=== PATIENT | male | born 1955 | race Caucasian/White ===

== ENCOUNTER 2017-08-29 18:23 | Inpatient (IN) | payer MEDICAID, MEDICARE ==
[2017-08-29 19:20] LABS: % BASOPHILS 0.3 % (0.0-2.0); % EOSINOPHILS 2.9 % (0.0-5.0); % MONOCYTES 6.2 % (2.0-10.0); % NEUTROPHILS 60.6 % (40.0-80.0); EOSINOPHILE ABSOLUTE 0.2 Th/cmm (0.1-0.4); HEMATOCRIT 44.4 % (41.0-60); HEMOGLOBIN 14.4 gm/dL (12-16); LYMPHOCYTE ABSOLUTE 2.5 Th/cmm (1.5-3.0); MEAN CELL VOLUME 93.1 fl (80-99); MEAN CORPUSCULAR HEMOGLOBIN 30.2 pg (26.0-30.0); MEAN CORPUSCULAR HGB CONC 32.4 pg (28.0-36.0); MEAN PLATELET VOLUME 7.6 fl; MONOCYTE ABSOLUTE 0.5 Th/cmm (0.3-1.0); NEUTROPHILE ABSOLUTE 5.1 Th/cmm (1.8-8.0); PLATELET COUNT 394 Th/cmm (150-400); RED BLOOD COUNT 4.77 Mil/cmm (4.30-5.70); RED CELL DISTRIBUTION WIDTH 12.1 % (11.5-20.0); WHITE BLOOD COUNT 8.3 Th/cmm (4.8-10.8)
[2017-08-29 19:37] LABS: ALB/GLOB RATIO 1.4 (1.0-1.8); ALBUMIN 3.8 gm/dL (4.2-5.5); ALKALINE PHOSPHATASE 85 U/L (34-104); BILIRUBIN,TOTAL 0.5 mg/dL (0.3-1.0); BUN - UREA NITROGEN 30 mg/dL (7-25); CALCIUM SERUM 9.2 mg/dL (8.6-10.3); CHLORIDE 102 mEq/L (98-107); CHOLESTEROL 143 mg/dL (<200); CREATININE - SERUM 1.1 mg/dL (0.7-1.3); GFR AFRICAN-AMERICAN > 60.0 ml/min (>90); GFR NON AFRICAN-AMERICAN > 60.0 ml/min; GLUCOSE 320 mg/dL (70-105); HDL -HIGH DENSITY LIPOPROTEIN 38 mg/dL (23-92); SGOT 43 U/L (13-39); SGPT/ALT 104 U/L (7-52); SODIUM SERUM 136 mEq/L (136-145); TOTAL PROTEIN,SERUM 6.6 gm/dL (6.0-8.3); TRIGLYCERIDES 156 mg/dL (<150)
--- NOTE | 2017-08-29 19:41 | ED Physician Chart ---
ED Chief Complaint/HPI - Patient Information Date Seen:: 08/29/17 Time Seen:: 19:41 Chief Complaint:: Increased agitation History of Present Illness:: Aggressive behavior, hallucination, striking out Allergies:: Allergies Allergy/AdvReac Type Severity Reaction Status Date / Time No Known Allergies Allergy Verified 03/27/16 22:52 Vitals:: Vital Signs - 8 hr 08/29/17 18:41 Temp 98.7 F HR 65 RR 16 BP 168/93 O2 Sat % 97 ED Past Medical History - Past Medical History Past Medical History: HTN, DM, CVA/TIA (right side weakness), Other (CKD, aphagia, metabolic encephalopathy) Social History: Non Smoker, No Alcohol Family Medical History - Family Member Mother History Unknown: Yes Hx Family HIV: No ED Labs/Radiology/EKG Results - Lab Results Results: Laboratory Tests 08/29/17 19:13 WBC 8.3 RBC 4.77 Hgb 14.4 Hct 44.4 MCV 93.1 MCH 30.2 H MCHC Differential 32.4 RDW 12.1 Plt Count 394 MPV 7.6 Neutrophils % 60.6 Lymphocytes % 30.0 Monocytes % 6.2 Eosinophils % 2.9 Basophils % 0.3 ED Septic Shock - <6hrs of presentation: Vital Signs: Vital Signs - 8 hr 08/29/17 18:41 Temp 98.7 F HR 65 RR 16 BP 168/93 O2 Sat % 97
[2017-08-29 20:41] LABS: A1C % 8.9 % (4.0-6.0)
[2017-08-29 21:44] VITALS: BP 171/98
[2017-08-30] MEDS ORDERED: INSULIN ASPART, RECOMBINANT 100 UNITS/ML SUBQ SCH (09:00)
[2017-08-30] MEDS: Dextromethorphan/Quinidine 20mg/10mg Cap PO SCH (09:42)
[2017-08-30] MEDS: Magnesium Hydroxide (MOM) 30 mL UDC PO SCH (09:42)
[2017-08-30] MEDS: Multivitamin w/ Minerals Tab PO SCH (09:42)
[2017-08-30] MEDS: INSULIN ASPART, RECOMBINANT 100 UNITS/ML SUBQ SCH ×2 (09:57→16:58)
--- NOTE | 2017-08-30 20:52 | Psychosocial Evaluation ---
DATE OF SERVICE: 08/30/2017 JUSTIFICATION FOR HOSPITALIZATION: Agitation, striking out, aggressive behaviors, hallucinating. CHIEF COMPLAINT: Aggression. HISTORY OF PRESENT ILLNESS: A 62-year-old male, aggressive, agitated, striking out at staff apparently hallucinating. On [id number], the patient mumbling, nonsensical, received emergency medications this morning, struck out at staff. On [id number], the patient is a very poor historian. I cannot understand anything he says. PAST PSYCHIATRIC HISTORY: It seems he has a history of metabolic encephalopathy. It is unclear if he has been to [facility] before. PAST MEDICAL HISTORY: Please see full H and P. SOCIAL HISTORY: Unclear per the face sheet. He is coming from in [place]. There is a son on the face sheet. MEDICATIONS: Noted, Remeron. Nonsmoker, no alcohol. MENTAL STATUS EXAMINATION: Stated age, mumbling, not making any sense, in a Heidi chair, impulsive, unpredictable, becomes agitated, escalates fast, unclear SI or HI. Seems to be responding to internal stimuli. PROVISIONAL DIAGNOSES: Mood unspecified, psychosis unspecified, rule out schizophrenia versus schizoaffective versus bipolar. It is unclear if he has a dementia diagnosis. It seems he has a history of CVAs in the past which could certainly explain his part of his presentation. Under MEDICAL: Please see full H and. ESTIMATED LENGTH OF STAY: 7-10 days. ASSESSMENT: The patient requiring inpatient hospitalization, agitated, aggressive, symptomatic, lashing out at others, hallucinating. RECOMMENDATIONS AND PLAN: We will continue medications. The patient did receive emergency dosing of Ativan, which did help calm him down. We will try to increase collateral. The patient may benefit from medications to target his impulse control and aggressive behaviors. PLAN: Consider Depakote. TREATMENT PLAN: Includes group as well as milieu therapy. CONDITIONS FOR DISCHARGE: Improved mood, improved affect, cessation of any SI or HI, better control of his aggressive symptoms. JOB# [id number]
[2017-08-31] MEDS: Magnesium Hydroxide (MOM) 30 mL UDC PO SCH (08:28)
[2017-08-31] MEDS: Multivitamin w/ Minerals Tab PO SCH (08:28)
[2017-08-31] MEDS: INSULIN ASPART, RECOMBINANT 100 UNITS/ML SUBQ SCH ×3 (10:13→16:16)
[2017-08-31] MEDS: Dextromethorphan/Quinidine 20mg/10mg Cap PO SCH (10:13)
--- NOTE | 2017-08-31 20:19 | History & Physical ---
ADMIT DATE: 08/29/2017 HISTORY OF PRESENT ILLNESS: The patient is admitted for increasing agitation. A 62-year-old male patient known to have history of hypertension, history of diabetes. The patient came to the ER because of aggressive behavior, hallucinations, striking others. The patient was admitted for psych reasons. PAST MEDICAL HISTORY: As enumerated. PAST SURGICAL HISTORY: As enumerated above. PHYSICAL EXAMINATION: VITAL SIGNS: Stable. HEAD: Normal. ENT: Normal. NECK: Supple, nontender. LUNGS: Bilaterally clear. CARDIOVASCULAR SYSTEM: S1, S2 heard. ABDOMEN: Soft. Bowel sounds are heard. CENTRAL NERVOUS SYSTEM: Grossly normal. DIAGNOSES: Acute psychosis, history of hypertension was made. PLAN: The patient is being admitted and I will follow medically and for the patient's psychiatric problem, I will follow along with psychiatrist. JOB# [id number]
--- NOTE | 2017-08-31 23:13 | Progress Notes ---
DATE: 08/31/2017 SUBJECTIVE: The patient remains agitated, striking out behaviors, confused, disoriented, mumbling, and difficult to understand. He has a history of metabolic encephalopathy, still restless, still impulsive, in a Heidi chair, escalates very quickly per staff. MEDICATIONS: Reviewed. ASSESSMENT: The patient remains symptomatic, not safe for a lower level of care, still can lash out, still can be dangerous. PLAN: The patient is still symptomatic. We will add bedtime dose of Seroquel. [facility]# [id number]
[2017-09-01] MEDS: Magnesium Hydroxide (MOM) 30 mL UDC PO SCH (08:12)
[2017-09-01] MEDS: Dextromethorphan/Quinidine 20mg/10mg Cap PO SCH (08:13)
[2017-09-01] MEDS: Multivitamin w/ Minerals Tab PO SCH (08:14)
[2017-09-01] MEDS ORDERED: Haloperidol Lactate 5 mg/mL 1mL Vial ONE (08:34)
[2017-09-01] MEDS ORDERED: Haloperidol Lactate 5 mg/mL 1mL Vial IM ONE (08:34)
[2017-09-01] MEDS: INSULIN ASPART, RECOMBINANT 100 UNITS/ML SUBQ SCH ×2 (09:06→16:43)
--- NOTE | 2017-09-01 16:33 | General Progress Note ---
Objective - Results Result Diagrams: 08/29/17 19:13 08/29/17 19:13 Recent Labs: Laboratory Last Values WBC 8.3 Th/cmm (4.8-10.8) 08/29/17 19:13 RBC 4.77 Mil/cmm (4.30-5.70) 08/29/17 19:13 Hgb 14.4 gm/dL (12-16) 08/29/17 19:13 Hct 44.4 % (41.0-60) 08/29/17 19:13 MCV 93.1 fl (80-99) 08/29/17 19:13 MCH 30.2 pg (26.0-30.0) H 08/29/17 19:13 MCHC Differential 32.4 pg (28.0-36.0) 08/29/17 19:13 RDW 12.1 % (11.5-20.0) 08/29/17 19:13 Plt Count 394 Th/cmm (150-400) 08/29/17 19:13 MPV 7.6 fl 08/29/17 19:13 Neutrophils % 60.6 % (40.0-80.0) 08/29/17 19:13 Lymphocytes % 30.0 % (20.0-50.0) 08/29/17 19:13 Monocytes % 6.2 % (2.0-10.0) 08/29/17 19:13 Eosinophils % 2.9 % (0.0-5.0) 08/29/17 19:13 Basophils % 0.3 % (0.0-2.0) 08/29/17 19:13 Sodium 136 mEq/L (136-145) 08/29/17 19:13 Potassium 4.0 mEq/L (3.5-5.1) 08/29/17 19:13 Chloride 102 mEq/L (98-107) 08/29/17 19:13 Carbon Dioxide 29.0 mEq/L (21.0-31.0) 08/29/17 19:13 Anion Gap 9.0 (7.0-16.0) 08/29/17 19:13 BUN 30 mg/dL (7-25) H 08/29/17 19:13 Creatinine 1.1 mg/dL (0.7-1.3) 08/29/17 19:13 Est GFR ( Amer) > 60.0 ml/min (>90) 08/29/17 19:13 Est GFR (Non-Af Amer) > 60.0 ml/min 08/29/17 19:13 BUN/Creatinine Ratio 27.3 08/29/17 19:13 Glucose 320 mg/dL (70-105) H 08/29/17 19:13 POC Glucose 234 MG/DL (70 - 105) H 09/01/17 08:47 Hemoglobin A1c % 8.9 % (4.0-6.0) H 08/29/17 19:13 Calcium 9.2 mg/dL (8.6-10.3) 08/29/17 19:13 Total Bilirubin 0.5 mg/dL (0.3-1.0) 08/29/17 19:13 AST 43 U/L (13-39) H 08/29/17 19:13 ALT 104 U/L (7-52) H 08/29/17 19:13 Alkaline Phosphatase 85 U/L (34-104) 08/29/17 19:13 Total Protein 6.6 gm/dL (6.0-8.3) 08/29/17 19:13 Albumin 3.8 gm/dL (4.2-5.5) L 08/29/17 19:13 Globulin 2.8 gm/dL 08/29/17 19:13 Albumin/Globulin Ratio 1.4 (1.0-1.8) 08/29/17 19:13 Triglycerides 156 mg/dL (<150) H 08/29/17 19:13 Cholesterol 143 mg/dL (<200) 08/29/17 19:13 LDL Cholesterol Direct 91 mg/dL (75-193) 08/29/17 19:13 HDL Cholesterol 38 mg/dL (23-92) 08/29/17 19:13 TSH 4.57 uIU/ml (0.34-5.60) 08/29/17 19:13 RPR NONREACTIVE (NONREACTIVE) 08/29/17 19:13 - Physical Exam Vitals and I&O: Vital Signs Temp 97 F 09/01/17 14:59 Pulse 51 09/01/17 14:59 Resp 51 09/01/17 14:59 BP 129/79 09/01/17 14:59 Pulse Ox 98 09/01/17 14:59 Intake & Output 08/31/17 09/01/17 09/01/17 18:59 06:59 18:59 Intake Total 900 240 Balance 900 240 Intake: Oral 900 240 Other: # Voids 3 3 Stool Characteristics Soft Formed Active Medications: Current Medications Acetaminophen (Tylenol) 650 mg PO Q4H PRN PRN Reason: Pain (Mild) Stop: 10/29/17 06:03 Amlodipine Besylate (Norvasc) 10 mg PO DAILY [facility] Stop: 10/29/17 08:59 Last Admin: 09/01/17 08:13 Dose: 10 mg Dextromethorphan/Quinidine (Nuedexta 20mg-10mg) 1 cap PO DAILY [facility] Stop: 10/29/17 08:59 Last Admin: 09/01/17 08:13 Dose: 1 cap Insulin Aspart (Novolog) 0 units SUBQ BID [facility] PRN Reason: Protocol Stop: 10/29/17 08:59 Last Admin: 09/01/17 09:06 Dose: 4 unit Levetiracetam (Keppra) 500 mg PO BID [facility] Stop: 10/29/17 08:59 Last Admin: 09/01/17 08:13 Dose: 500 mg Lorazepam (Ativan) 1 mg PO Q4HR PRN; Protocol PRN Reason: Anxiety Stop: 09/29/17 00:18 Last Admin: 09/01/17 08:18 Dose: 1 mg Magnesium Hydroxide (Milk Of Magnesia) 30 ml PO DAILY [facility] Stop: 10/29/17 08:59 Last Admin: 09/01/17 08:12 Dose: 30 ml Metoprolol Tartrate (Lopressor) 100 mg PO DAILY [facility] Stop: 10/29/17 08:59 Last Admin: 09/01/17 08:13 Dose: 100 mg Quetiapine Fumarate (Seroquel) 12.5 mg PO BID [facility] PRN Reason: Protocol Stop: 10/29/17 16:59 Last Admin: 09/01/17 08:14 Dose: 12.5 mg Quetiapine Fumarate (Seroquel) 50 mg PO HS [facility] PRN Reason: Protocol Stop: 10/31/17 11:50 - Procedures Procedures: Procedures Procedure Code Date FIX G/COLON TUBE W/DEVICE 30584 03/12/09 INSERTION OF INFUSION DEVICE INTO UPPER VEIN, PERC APPROACH [id number] 05/11/16 REMOV GASTROSTOMY TUBE 97.51 03/12/09 Nutritional Asmnt/Malnutr-PDOC - Dietary Evaluation Malnutrition Findings (Please click <Entered> for more info): Nutritional Asmnt/Malnutrition Start: 08/30/17 13: 54 Text: Status: Complete Freq: Document 08/30/17 13:54 [facility] (Rec: 08/30/17 14:06 LCJULIANAG [id number]) Nutritional Asmnt/Malnutrition Patient General Information Nutritional Screening High Risk Consult Diagnosis agitation, psychosis Pertinent Medical Hx/Surgical Hx HTN, DM, CVA/TIA, CKD, aphagia , metabolic encephalopathy Subjective Information Consult received for glucose 320 at admission. Pt seen sitting in israel-chair in dinning room, confused and Belgian speaking, not appropriate for interview or education. Spoke with nurse, pt ate well, PO intake 100%. Current Diet Order/ Nutrition Support CCHO-60gm, low fat, low chlesterol Pertinent Medications novolog Pertinent Labs 08/29 Na 136, K 4.0, Cl 102, BUN 30, Cr 1.1, Glucose 320, A1c 8.9, Alb 3.8, AST 43, ALT 104 Nutritional Hx/Data Height 1.52 m Height (Calculated Centimeters) 152.4 Current Weight (lbs) 56.699 kg Weight (Calculated Kilograms) 56.7 Weight (Calculated Grams) 47910.0 [place] Body Weight 106 Body Mass Index (BMI) 24.4 Weight Status Approriate GI Symptoms GI Symptoms None Last BM no record since adm Difficult in: None Skin Integrity/Comment: intact Current %PO Good (75-100%) Estimated Nutritional Goals BEE in Kcals: Using Current wt Calories/Kcals/Kg 25-30 Kcals Calculated 4472-1177 Protein: Using Current wt Protein g/k-1.2 Protein Calculated 57-68 Fluid: ml 1425-1710ml (1ml/kcal) Nutritional Problem 1. Problem Problem altered nutrition related lab values Etiology hx of DM Signs/Symptoms: Glucose 320, A1c 8.9 Malnutrition Alert Protein-Calorie Malnutrition N/A Is there a minimum of two criteria No selected? Query Text:Check all the applicable criteria. A minimum of two criteria are recommended for diagnosis of either severe or non-severe malnutrition. Intervention/Recommendation Comments 1. Continue with current diet as ordered. Will provide nutrition education when pt mentaly capable. 2. Monitor PO intake, wt, labs and skin integrity 3. F/U as moderate risk in 3-5 days, 3-09/04 Expected Outcomes/Goals Expected Outcomes/Goals 1. PO intake to meet at least 75% of nutritional needs. 2. Wt stability, skin to remain intact, labs to approach WNL.
--- NOTE | 2017-09-01 17:33 | Progress Notes ---
DATE: SUBJECTIVE: The patient is seen, chart reviewed, discussed with staff. The patient is still unruly, requiring emergency medications, emergency Haldol, agitated, combative, trying to hit staff, violent and aggressive, highly impulsive and unpredictable. MEDICATIONS: Noted. ASSESSMENT: The patient remains symptomatic, confused, still lashing out at staff, dangerous, required emergency medications just a few hours prior. PLAN: We will continue to monitor. We will continue to adjust and titrate medications. [facility]# [id number]
[2017-09-02] MEDS: Magnesium Hydroxide (MOM) 30 mL UDC PO SCH (08:26)
[2017-09-02] MEDS: Dextromethorphan/Quinidine 20mg/10mg Cap PO SCH (08:27)
[2017-09-02] MEDS: INSULIN ASPART, RECOMBINANT 100 UNITS/ML SUBQ SCH ×2 (08:27→16:21)
[2017-09-02] MEDS: Multivitamin w/ Minerals Tab PO SCH (08:28)
--- NOTE | 2017-09-02 12:36 | General Progress Note ---
Subjective - Review of Systems Events since last encounter: awake confused no distress Objective - Results Result Diagrams: 08/29/17 19:13 08/29/17 19:13 Recent Labs: Laboratory Last Values WBC 8.3 Th/cmm (4.8-10.8) 08/29/17 19:13 RBC 4.77 Mil/cmm (4.30-5.70) 08/29/17 19:13 Hgb 14.4 gm/dL (12-16) 08/29/17 19:13 Hct 44.4 % (41.0-60) 08/29/17 19:13 MCV 93.1 fl (80-99) 08/29/17 19:13 MCH 30.2 pg (26.0-30.0) H 08/29/17 19:13 MCHC Differential 32.4 pg (28.0-36.0) 08/29/17 19:13 RDW 12.1 % (11.5-20.0) 08/29/17 19:13 Plt Count 394 Th/cmm (150-400) 08/29/17 19:13 MPV 7.6 fl 08/29/17 19:13 Neutrophils % 60.6 % (40.0-80.0) 08/29/17 19:13 Lymphocytes % 30.0 % (20.0-50.0) 08/29/17 19:13 Monocytes % 6.2 % (2.0-10.0) 08/29/17 19:13 Eosinophils % 2.9 % (0.0-5.0) 08/29/17 19:13 Basophils % 0.3 % (0.0-2.0) 08/29/17 19:13 Sodium 136 mEq/L (136-145) 08/29/17 19:13 Potassium 4.0 mEq/L (3.5-5.1) 08/29/17 19:13 Chloride 102 mEq/L (98-107) 08/29/17 19:13 Carbon Dioxide 29.0 mEq/L (21.0-31.0) 08/29/17 19:13 Anion Gap 9.0 (7.0-16.0) 08/29/17 19:13 BUN 30 mg/dL (7-25) H 08/29/17 19:13 Creatinine 1.1 mg/dL (0.7-1.3) 08/29/17 19:13 Est GFR ( Amer) > 60.0 ml/min (>90) 08/29/17 19:13 Est GFR (Non-Af Amer) > 60.0 ml/min 08/29/17 19:13 BUN/Creatinine Ratio 27.3 08/29/17 19:13 Glucose 320 mg/dL (70-105) H 08/29/17 19:13 POC Glucose 312 MG/DL (70 - 105) H 09/02/17 07:28 Hemoglobin A1c % 8.9 % (4.0-6.0) H 08/29/17 19:13 Calcium 9.2 mg/dL (8.6-10.3) 08/29/17 19:13 Total Bilirubin 0.5 mg/dL (0.3-1.0) 08/29/17 19:13 AST 43 U/L (13-39) H 08/29/17 19:13 ALT 104 U/L (7-52) H 08/29/17 19:13 Alkaline Phosphatase 85 U/L (34-104) 08/29/17 19:13 Total Protein 6.6 gm/dL (6.0-8.3) 08/29/17 19:13 Albumin 3.8 gm/dL (4.2-5.5) L 08/29/17 19:13 Globulin 2.8 gm/dL 08/29/17 19:13 Albumin/Globulin Ratio 1.4 (1.0-1.8) 08/29/17 19:13 Triglycerides 156 mg/dL (<150) H 08/29/17 19:13 Cholesterol 143 mg/dL (<200) 08/29/17 19:13 LDL Cholesterol Direct 91 mg/dL (75-193) 08/29/17 19:13 HDL Cholesterol 38 mg/dL (23-92) 08/29/17 19:13 TSH 4.57 uIU/ml (0.34-5.60) 08/29/17 19:13 RPR NONREACTIVE (NONREACTIVE) 08/29/17 19:13 - Physical Exam Vitals and I&O: Vital Signs Temp 97.5 F 09/02/17 00:39 Pulse 71 09/02/17 08:29 Resp 20 09/02/17 08:00 BP 148/94 03/03/18 08:29 Pulse Ox 97 09/02/17 00:39 Intake & Output 09/01/17 09/02/17 09/02/17 18:59 06:59 18:59 Intake Total 900 240 Balance 900 240 Intake: Oral 900 240 Other: # Voids 3 2 Stool Characteristics Soft Active Medications: Current Medications Acetaminophen (Tylenol) 650 mg PO Q4H PRN PRN Reason: Pain (Mild) Stop: 10/29/17 06:03 Amlodipine Besylate (Norvasc) 10 mg PO DAILY [facility] Stop: 10/29/17 08:59 Last Admin: 09/02/17 08:27 Dose: 10 mg Dextromethorphan/Quinidine (Nuedexta 20mg-10mg) 1 cap PO DAILY [facility] Stop: 10/29/17 08:59 Last Admin: 09/02/17 08:27 Dose: 1 cap Insulin Aspart (Novolog) 0 units SUBQ BID [facility] PRN Reason: Protocol Stop: 10/29/17 08:59 Last Admin: 09/02/17 08:27 Dose: 8 unit Levetiracetam (Keppra) 500 mg PO BID [facility] Stop: 10/29/17 08:59 Last Admin: 09/02/17 08:28 Dose: 500 mg Lorazepam (Ativan) 1 mg PO Q4HR PRN; Protocol PRN Reason: Anxiety Stop: 09/29/17 00:18 Last Admin: 09/02/17 07:47 Dose: 1 mg Magnesium Hydroxide (Milk Of Magnesia) 30 ml PO DAILY [facility] Stop: 10/29/17 08:59 Last Admin: 09/02/17 08:26 Dose: 30 ml Metoprolol Tartrate (Lopressor) 100 mg PO DAILY [facility] Stop: 10/29/17 08:59 Last Admin: 09/02/17 08:29 Dose: 100 mg Quetiapine Fumarate (Seroquel) 12.5 mg PO BID [facility] PRN Reason: Protocol Stop: 10/29/17 16:59 Last Admin: 09/02/17 08:28 Dose: 12.5 mg Quetiapine Fumarate (Seroquel) 50 mg PO HS [facility] PRN Reason: Protocol Stop: 10/31/17 11:50 Last Admin: 09/01/17 21:21 Dose: 50 mg - Procedures Procedures: Procedures Procedure Code Date FIX G/COLON TUBE W/DEVICE 15767 03/12/09 INSERTION OF INFUSION DEVICE INTO UPPER VEIN, PERC APPROACH [id number] 05/11/16 REMOV GASTROSTOMY TUBE 97.51 03/12/09 Nutritional Asmnt/Malnutr-PDOC - Dietary Evaluation Malnutrition Findings (Please click <Entered> for more info): Nutritional Asmnt/Malnutrition Start: 08/30/17 13: 54 Text: Status: Complete Freq: Document 08/30/17 13:54 [facility] (Rec: 08/30/17 14:06 [id number] Nutritional Asmnt/Malnutrition Patient General Information Nutritional Screening High Risk Consult Diagnosis agitation, psychosis Pertinent Medical Hx/Surgical Hx HTN, DM, CVA/TIA, CKD, aphagia , metabolic encephalopathy Subjective Information Consult received for glucose 320 at admission. Pt seen sitting in israel-chair in dinning room, confused and Bulgarian speaking, not appropriate for interview or education. Spoke with nurse, pt ate well, PO intake 100%. Current Diet Order/ Nutrition Support CCHO-60gm, low fat, low chlesterol Pertinent Medications novolog Pertinent Labs 08/29 Na 136, K 4.0, Cl 102, BUN 30, Cr 1.1, Glucose 320, A1c 8.9, Alb 3.8, AST 43, ALT 104 Nutritional Hx/Data Height 1.52 m Height (Calculated Centimeters) 152.4 Current Weight (lbs) 56.699 kg Weight (Calculated Kilograms) 56.7 Weight (Calculated Grams) 27437.0 [place] Body Weight 106 Body Mass Index (BMI) 24.4 Weight Status Approriate GI Symptoms GI Symptoms None Last BM no record since adm Difficult in: None Skin Integrity/Comment: intact Current %PO Good (75-100%) Estimated Nutritional Goals BEE in Kcals: Using Current wt Calories/Kcals/Kg 25-30 Kcals Calculated 2910-1323 Protein: Using Current wt Protein g/k-1.2 Protein Calculated 57-68 Fluid: ml 1425-1710ml (1ml/kcal) Nutritional Problem 1. Problem Problem altered nutrition related lab values Etiology hx of DM Signs/Symptoms: Glucose 320, A1c 8.9 Malnutrition Alert Protein-Calorie Malnutrition N/A Is there a minimum of two criteria No selected? Query Text:Check all the applicable criteria. A minimum of two criteria are recommended for diagnosis of either severe or non-severe malnutrition. Intervention/Recommendation Comments 1. Continue with current diet as ordered. Will provide nutrition education when pt mentaly capable. 2. Monitor PO intake, wt, labs and skin integrity 3. F/U as moderate risk in 3-5 days, 3/3-3/5 Expected Outcomes/Goals Expected Outcomes/Goals 1. PO intake to meet at least 75% of nutritional needs. 2. Wt stability, skin to remain intact, labs to approach WNL.
--- NOTE | 2017-09-02 17:06 | Progress Notes ---
DATE: 09/02/2017 Case was discussed with staff of the patient, reviewed records. Covering for Dr. Simms. This 62-year-old male who was admitted on 08/29/2017 because of being aggressive, agitated, striking out at staff, hallucinating. The patient was rambling, mumbling, making nonsensical statements, has to be medicated. If he was a very poor historian. When I tried to talk to him, he would not answer any of my questions. He is still unpredictable, impulsive, needing redirection, confused, probably demented. He is on Seroquel 12.5 mg twice a day and 50 mg at bedtime with no side effects, no sedation, no nausea, and no extrapyramidal symptoms. He is on a Heidi chair. We will continue to work with the patient in group therapy, milieu therapy, and adjust medications as needed. JOB# [id number]
[2017-09-03] MEDS: INSULIN ASPART, RECOMBINANT 100 UNITS/ML SUBQ SCH ×2 (08:09→16:21)
[2017-09-03] MEDS: Dextromethorphan/Quinidine 20mg/10mg Cap PO SCH (08:09)
[2017-09-03] MEDS: Multivitamin w/ Minerals Tab PO SCH (08:10)
[2017-09-03] MEDS: Magnesium Hydroxide (MOM) 30 mL UDC PO SCH (08:11)
--- NOTE | 2017-09-03 14:02 | General Progress Note ---
Subjective - Review of Systems Events since last encounter: in no distress Objective - Results Result Diagrams: 08/29/17 19:13 08/29/17 19:13 Recent Labs: Laboratory Last Values WBC 8.3 Th/cmm (4.8-10.8) 08/29/17 19:13 RBC 4.77 Mil/cmm (4.30-5.70) 08/29/17 19:13 Hgb 14.4 gm/dL (12-16) 08/29/17 19:13 Hct 44.4 % (41.0-60) 08/29/17 19:13 MCV 93.1 fl (80-99) 08/29/17 19:13 MCH 30.2 pg (26.0-30.0) H 08/29/17 19:13 MCHC Differential 32.4 pg (28.0-36.0) 08/29/17 19:13 RDW 12.1 % (11.5-20.0) 08/29/17 19:13 Plt Count 394 Th/cmm (150-400) 08/29/17 19:13 MPV 7.6 fl 08/29/17 19:13 Neutrophils % 60.6 % (40.0-80.0) 08/29/17 19:13 Lymphocytes % 30.0 % (20.0-50.0) 08/29/17 19:13 Monocytes % 6.2 % (2.0-10.0) 08/29/17 19:13 Eosinophils % 2.9 % (0.0-5.0) 08/29/17 19:13 Basophils % 0.3 % (0.0-2.0) 08/29/17 19:13 Sodium 136 mEq/L (136-145) 08/29/17 19:13 Potassium 4.0 mEq/L (3.5-5.1) 08/29/17 19:13 Chloride 102 mEq/L (98-107) 08/29/17 19:13 Carbon Dioxide 29.0 mEq/L (21.0-31.0) 08/29/17 19:13 Anion Gap 9.0 (7.0-16.0) 08/29/17 19:13 BUN 30 mg/dL (7-25) H 08/29/17 19:13 Creatinine 1.1 mg/dL (0.7-1.3) 08/29/17 19:13 Est GFR ( Amer) > 60.0 ml/min (>90) 08/29/17 19:13 Est GFR (Non-Af Amer) > 60.0 ml/min 08/29/17 19:13 BUN/Creatinine Ratio 27.3 08/29/17 19:13 Glucose 320 mg/dL (70-105) H 08/29/17 19:13 POC Glucose 312 MG/DL (70 - 105) H 09/02/17 07:28 Hemoglobin A1c % 8.9 % (4.0-6.0) H 08/29/17 19:13 Calcium 9.2 mg/dL (8.6-10.3) 08/29/17 19:13 Total Bilirubin 0.5 mg/dL (0.3-1.0) 08/29/17 19:13 AST 43 U/L (13-39) H 08/29/17 19:13 ALT 104 U/L (7-52) H 08/29/17 19:13 Alkaline Phosphatase 85 U/L (34-104) 08/29/17 19:13 Total Protein 6.6 gm/dL (6.0-8.3) 08/29/17 19:13 Albumin 3.8 gm/dL (4.2-5.5) L 08/29/17 19:13 Globulin 2.8 gm/dL 08/29/17 19:13 Albumin/Globulin Ratio 1.4 (1.0-1.8) 08/29/17 19:13 Triglycerides 156 mg/dL (<150) H 08/29/17 19:13 Cholesterol 143 mg/dL (<200) 08/29/17 19:13 LDL Cholesterol Direct 91 mg/dL (75-193) 08/29/17 19:13 HDL Cholesterol 38 mg/dL (23-92) 08/29/17 19:13 TSH 4.57 uIU/ml (0.34-5.60) 08/29/17 19:13 RPR NONREACTIVE (NONREACTIVE) 08/29/17 19:13 - Physical Exam Vitals and I&O: Vital Signs Temp 96.7 F 09/03/17 06:20 Pulse 89 09/03/17 08:11 Resp 18 03/04/18 06:20 BP 152/98 09/03/17 08:11 Pulse Ox 98 09/03/17 06:20 Intake & Output 09/02/17 09/03/17 09/03/17 18:59 06:59 18:59 Intake Total 900 Balance 900 Intake: Oral 900 Other: # Voids 3 Stool Characteristics Soft Active Medications: Current Medications Acetaminophen (Tylenol) 650 mg PO Q4H PRN PRN Reason: Pain (Mild) Stop: 10/29/17 06:03 Amlodipine Besylate (Norvasc) 10 mg PO DAILY [facility] Stop: 10/29/17 08:59 Last Admin: 09/03/17 08:08 Dose: 10 mg Dextromethorphan/Quinidine (Nuedexta 20mg-10mg) 1 cap PO DAILY [facility] Stop: 10/29/17 08:59 Last Admin: 09/03/17 08:09 Dose: 1 cap Insulin Aspart (Novolog) 0 units SUBQ BID [facility] PRN Reason: Protocol Stop: 10/29/17 08:59 Last Admin: 09/03/17 08:09 Dose: 8 unit Levetiracetam (Keppra) 500 mg PO BID [facility] Stop: 10/29/17 08:59 Last Admin: 09/03/17 08:10 Dose: 500 mg Lorazepam (Ativan) 1 mg PO Q4HR PRN; Protocol PRN Reason: Anxiety Stop: 09/29/17 00:18 Last Admin: 09/03/17 05:47 Dose: 1 mg Magnesium Hydroxide (Milk Of Magnesia) 30 ml PO DAILY [facility] Stop: 10/29/17 08:59 Last Admin: 09/03/17 08:11 Dose: 30 ml Metoprolol Tartrate (Lopressor) 100 mg PO DAILY [facility] Stop: 10/29/17 08:59 Last Admin: 09/03/17 08:11 Dose: 100 mg Quetiapine Fumarate (Seroquel) 12.5 mg PO BID [facility] PRN Reason: Protocol Stop: 10/29/17 16:59 Last Admin: 09/03/17 08:11 Dose: 12.5 mg Quetiapine Fumarate (Seroquel) 50 mg PO HS [facility] PRN Reason: Protocol Stop: 10/31/17 11:50 Last Admin: 09/02/17 20:59 Dose: 50 mg - Procedures Procedures: Procedures Procedure Code Date FIX G/COLON TUBE W/DEVICE 61767 03/12/09 INSERTION OF INFUSION DEVICE INTO UPPER VEIN, PERC APPROACH [id number] 05/11/16 REMOV GASTROSTOMY TUBE 97.51 03/12/09 Nutritional Asmnt/Malnutr-PDOC - Dietary Evaluation Malnutrition Findings (Please click <Entered> for more info): Nutritional Asmnt/Malnutrition Start: 08/30/17 13: 54 Text: Status: Complete Freq: Document 08/30/17 13:54 [facility] (Rec: 08/30/17 14:06 [email or web address] Nutritional Asmnt/Malnutrition Patient General Information Nutritional Screening High Risk Consult Diagnosis agitation, psychosis Pertinent Medical Hx/Surgical Hx HTN, DM, CVA/TIA, CKD, aphagia , metabolic encephalopathy Subjective Information Consult received for glucose 320 at admission. Pt seen sitting in israel-chair in dinning room, confused and [place] speaking, not appropriate for interview or education. Spoke with nurse, pt ate well, PO intake 100%. Current Diet Order/ Nutrition Support CCHO-60gm, low fat, low chlesterol Pertinent Medications novolog Pertinent Labs 08/29 Na 136, K 4.0, Cl 102, BUN 30, Cr 1.1, Glucose 320, A1c 8.9, Alb 3.8, AST 43, ALT 104 Nutritional Hx/Data Height 1.52 m Height (Calculated Centimeters) 152.4 Current Weight (lbs) 56.699 kg Weight (Calculated Kilograms) 56.7 Weight (Calculated Grams) 46945.0 [place] Body Weight 106 Body Mass Index (BMI) 24.4 Weight Status Approriate GI Symptoms GI Symptoms None Last BM no record since adm Difficult in: None Skin Integrity/Comment: intact Current %PO Good (75-100%) Estimated Nutritional Goals BEE in Kcals: Using Current wt Calories/Kcals/Kg 25-30 Kcals Calculated 9325-6026 Protein: Using Current wt Protein g/k-1.2 Protein Calculated 57-68 Fluid: ml 1425-1710ml (1ml/kcal) Nutritional Problem 1. Problem Problem altered nutrition related lab values Etiology hx of DM Signs/Symptoms: Glucose 320, A1c 8.9 Malnutrition Alert Protein-Calorie Malnutrition N/A Is there a minimum of two criteria No selected? Query Text:Check all the applicable criteria. A minimum of two criteria are recommended for diagnosis of either severe or non-severe malnutrition. Intervention/Recommendation Comments 1. Continue with current diet as ordered. Will provide nutrition education when pt mentaly capable. 2. Monitor PO intake, wt, labs and skin integrity 3. F/U as moderate risk in 3-5 days, 3/3-3/5 Expected Outcomes/Goals Expected Outcomes/Goals 1. PO intake to meet at least 75% of nutritional needs. 2. Wt stability, skin to remain intact, labs to approach WNL.
--- NOTE | 2017-09-03 22:32 | Progress Notes ---
DATE: 09/03/[address] Jason Simms. Case was discussed with staff of patient, reviewed records. The patient continues to be confused, continues to be unpredictable, impulsive, needing redirection. Continues to have poor insight. Continues to be unable to participate in meaningful conversation, make safe plan for self-care. He is compliant with the medication with no side effects, no sedation, no nausea and no extrapyramidal symptoms. We will continue the outpatient group therapy, milieu therapy, adjust medication as needed. JOB# [id number]
--- NOTE | 2017-09-04 09:41 | General Progress Note ---
Subjective - Review of Systems Events since last encounter: awake looks comfortable in no distress Objective - Results Result Diagrams: 08/29/17 19:13 08/29/17 19:13 Recent Labs: Laboratory Last Values WBC 8.3 Th/cmm (4.8-10.8) 08/29/17 19:13 RBC 4.77 Mil/cmm (4.30-5.70) 08/29/17 19:13 Hgb 14.4 gm/dL (12-16) 08/29/17 19:13 Hct 44.4 % (41.0-60) 08/29/17 19:13 MCV 93.1 fl (80-99) 08/29/17 19:13 MCH 30.2 pg (26.0-30.0) H 08/29/17 19:13 MCHC Differential 32.4 pg (28.0-36.0) 08/29/17 19:13 RDW 12.1 % (11.5-20.0) 08/29/17 19:13 Plt Count 394 Th/cmm (150-400) 08/29/17 19:13 MPV 7.6 fl 08/29/17 19:13 Neutrophils % 60.6 % (40.0-80.0) 08/29/17 19:13 Lymphocytes % 30.0 % (20.0-50.0) 08/29/17 19:13 Monocytes % 6.2 % (2.0-10.0) 08/29/17 19:13 Eosinophils % 2.9 % (0.0-5.0) 08/29/17 19:13 Basophils % 0.3 % (0.0-2.0) 08/29/17 19:13 Sodium 136 mEq/L (136-145) 08/29/17 19:13 Potassium 4.0 mEq/L (3.5-5.1) 08/29/17 19:13 Chloride 102 mEq/L (98-107) 08/29/17 19:13 Carbon Dioxide 29.0 mEq/L (21.0-31.0) 08/29/17 19:13 Anion Gap 9.0 (7.0-16.0) 08/29/17 19:13 BUN 30 mg/dL (7-25) H 08/29/17 19:13 Creatinine 1.1 mg/dL (0.7-1.3) 08/29/17 19:13 Est GFR ( Amer) > 60.0 ml/min (>90) 08/29/17 19:13 Est GFR (Non-Af Amer) > 60.0 ml/min 08/29/17 19:13 BUN/Creatinine Ratio 27.3 08/29/17 19:13 Glucose 320 mg/dL (70-105) H 08/29/17 19:13 POC Glucose 216 MG/DL (70 - 105) H 09/03/17 16:04 Hemoglobin A1c % 8.9 % (4.0-6.0) H 08/29/17 19:13 Calcium 9.2 mg/dL (8.6-10.3) 08/29/17 19:13 Total Bilirubin 0.5 mg/dL (0.3-1.0) 08/29/17 19:13 AST 43 U/L (13-39) H 08/29/17 19:13 ALT 104 U/L (7-52) H 08/29/17 19:13 Alkaline Phosphatase 85 U/L (34-104) 08/29/17 19:13 Total Protein 6.6 gm/dL (6.0-8.3) 08/29/17 19:13 Albumin 3.8 gm/dL (4.2-5.5) L 08/29/17 19:13 Globulin 2.8 gm/dL 08/29/17 19:13 Albumin/Globulin Ratio 1.4 (1.0-1.8) 08/29/17 19:13 Triglycerides 156 mg/dL (<150) H 08/29/17 19:13 Cholesterol 143 mg/dL (<200) 08/29/17 19:13 LDL Cholesterol Direct 91 mg/dL (75-193) 08/29/17 19:13 HDL Cholesterol 38 mg/dL (23-92) 08/29/17 19:13 TSH 4.57 uIU/ml (0.34-5.60) 08/29/17 19:13 RPR NONREACTIVE (NONREACTIVE) 08/29/17 19:13 - Physical Exam Vitals and I&O: Vital Signs Temp 97.5 F 09/04/17 06:00 Pulse 55 09/04/17 06:00 Resp 19 09/04/17 06:00 BP 133/94 09/04/17 06:00 Pulse Ox 100 09/04/17 06:00 Intake & Output 09/03/17 09/04/17 09/04/17 18:59 06:59 18:59 Intake Total 850 300 Output Total 1 Balance 850 299 Intake: Oral 850 300 Output: Stool 1 Other: # Voids 4 2 # Bowel Movements 1 1 Stool Characteristics Soft Active Medications: Current Medications Acetaminophen (Tylenol) 650 mg PO Q4H PRN PRN Reason: Pain (Mild) Stop: 10/29/17 06:03 Amlodipine Besylate (Norvasc) 10 mg PO DAILY [facility] Stop: 10/29/17 08:59 Last Admin: 09/03/17 08:08 Dose: 10 mg Dextromethorphan/Quinidine (Nuedexta 20mg-10mg) 1 cap PO DAILY [facility] Stop: 10/29/17 08:59 Last Admin: 09/03/17 08:09 Dose: 1 cap Insulin Aspart (Novolog) 0 units SUBQ BID [facility] PRN Reason: Protocol Stop: 10/29/17 08:59 Last Admin: 09/03/17 16:21 Dose: 4 unit Levetiracetam (Keppra) 500 mg PO BID [facility] Stop: 10/29/17 08:59 Last Admin: 09/03/17 16:22 Dose: 500 mg Lorazepam (Ativan) 1 mg PO Q4HR PRN; Protocol PRN Reason: Anxiety Stop: 09/29/17 00:18 Last Admin: 09/03/17 21:10 Dose: 1 mg Magnesium Hydroxide (Milk Of Magnesia) 30 ml PO DAILY [facility] Stop: 10/29/17 08:59 Last Admin: 09/03/17 08:11 Dose: 30 ml Metoprolol Tartrate (Lopressor) 100 mg PO DAILY [facility] Stop: 10/29/17 08:59 Last Admin: 09/03/17 08:11 Dose: 100 mg Quetiapine Fumarate (Seroquel) 12.5 mg PO BID [facility] PRN Reason: Protocol Stop: 10/29/17 16:59 Last Admin: 09/03/17 16:21 Dose: 12.5 mg Quetiapine Fumarate (Seroquel) 50 mg PO HS [facility] PRN Reason: Protocol Stop: 10/31/17 11:50 Last Admin: 09/03/17 21:00 Dose: 50 mg - Procedures Procedures: Procedures Procedure Code Date FIX G/COLON TUBE W/DEVICE 24147 03/12/09 INSERTION OF INFUSION DEVICE INTO UPPER VEIN, PERC APPROACH [id number] 05/11/16 REMOV GASTROSTOMY TUBE 97.51 03/12/09 Nutritional Asmnt/Malnutr-PDOC - Dietary Evaluation Malnutrition Findings (Please click <Entered> for more info): Nutritional Asmnt/Malnutrition Start: 08/30/17 13: 54 Text: Status: Complete Freq: Document 08/30/17 13:54 [facility] (Rec: 08/30/17 14:06 [email or web address]) Nutritional Asmnt/Malnutrition Patient General Information Nutritional Screening High Risk Consult Diagnosis agitation, psychosis Pertinent Medical Hx/Surgical Hx HTN, DM, CVA/TIA, CKD, aphagia , metabolic encephalopathy Subjective Information Consult received for glucose 320 at admission. Pt seen sitting in israel-chair in dinning room, confused and [place] speaking, not appropriate for interview or education. Spoke with nurse, pt ate well, PO intake 100%. Current Diet Order/ Nutrition Support CCHO-60gm, low fat, low chlesterol Pertinent Medications novolog Pertinent Labs 08/29 Na 136, K 4.0, Cl 102, BUN 30, Cr 1.1, Glucose 320, A1c 8.9, Alb 3.8, AST 43, ALT 104 Nutritional Hx/Data Height 1.52 m Height (Calculated Centimeters) 152.4 Current Weight (lbs) 56.699 kg Weight (Calculated Kilograms) 56.7 Weight (Calculated Grams) 62971.0 [place] Body Weight 106 Body Mass Index (BMI) 24.4 Weight Status Approriate GI Symptoms GI Symptoms None Last BM no record since adm Difficult in: None Skin Integrity/Comment: intact Current %PO Good (75-100%) Estimated Nutritional Goals BEE in Kcals: Using Current wt Calories/Kcals/Kg 25-30 Kcals Calculated 6709-9412 Protein: Using Current wt Protein g/k-1.2 Protein Calculated 57-68 Fluid: ml 1425-1710ml (1ml/kcal) Nutritional Problem 1. Problem Problem altered nutrition related lab values Etiology hx of DM Signs/Symptoms: Glucose 320, A1c 8.9 Malnutrition Alert Protein-Calorie Malnutrition N/A Is there a minimum of two criteria No selected? Query Text:Check all the applicable criteria. A minimum of two criteria are recommended for diagnosis of either severe or non-severe malnutrition. Intervention/Recommendation Comments 1. Continue with current diet as ordered. Will provide nutrition education when pt mentaly capable. 2. Monitor PO intake, wt, labs and skin integrity 3. F/U as moderate risk in 3-5 days, 3/3-3/5 Expected Outcomes/Goals Expected Outcomes/Goals 1. PO intake to meet at least 75% of nutritional needs. 2. Wt stability, skin to remain intact, labs to approach WNL.
[2017-09-04] MEDS: Dextromethorphan/Quinidine 20mg/10mg Cap PO SCH (12:06)
[2017-09-04] MEDS: Magnesium Hydroxide (MOM) 30 mL UDC PO SCH (12:07)
[2017-09-04] MEDS: Multivitamin w/ Minerals Tab PO SCH (12:08)
--- NOTE | 2017-09-04 18:57 | Progress Notes ---
DATE: 09/04/2017 The patient remains confused, unpredictable, impulsive, needing redirection, poor insight, still lashing out, but less, still with behavioral disturbances, nonpredictable but less. There is some improvement. He has been calmer, still answering most questions with "alright alright alright." MEDICATIONS: Reviewed. ASSESSMENT: The patient remains symptomatic, still requiring high level of redirection and prompting, still unpredictable. PLAN: We will continue to monitor. The patient does seem to be calming down and responding well to current regimen of Seroquel. JOB# [id number]
[2017-09-04] MEDS: INSULIN ASPART, RECOMBINANT 100 UNITS/ML SUBQ SCH (19:05)
[2017-09-05] MEDS: Dextromethorphan/Quinidine 20mg/10mg Cap PO SCH (08:57)
[2017-09-05] MEDS: Magnesium Hydroxide (MOM) 30 mL UDC PO SCH (08:59)
[2017-09-05] MEDS: Multivitamin w/ Minerals Tab PO SCH (08:59)
[2017-09-05] MEDS: INSULIN ASPART, RECOMBINANT 100 UNITS/ML SUBQ SCH ×2 (09:00→16:35)
--- NOTE | 2017-09-05 17:53 | Progress Notes ---
DATE: 09/05/2017 SUBJECTIVE: The patient remains confused, unpredictable, still needing a lot of redirection, in a Heidi chair and progressed on exam, still answering questions with "right, right, right." Remains isolative. MEDICATIONS: Noted. ASSESSMENT: The patient remains symptomatic, still requiring a Heidi chair, unpredictable, not safe for a lower level of care. PLAN: We will continue to monitor. Given recent dose increase of Seroquel, will continue at current dose. The patient does seem to be somewhat calmer. JOB# [id number]
--- NOTE | 2017-09-05 21:04 | Internal Medicine Prog Note ---
Internal Medicine Subjective - Subjective Service Date: 09/05/17 Patient seen and examined:: with staff Patient is:: awake Per staff patient has:: tolerating meds Internal Medicine Objective - Results Result Diagrams: 08/29/17 19:13 08/29/17 19:13 Recent Labs: Laboratory Last Values WBC 8.3 Th/cmm (4.8-10.8) 08/29/17 19:13 RBC 4.77 Mil/cmm (4.30-5.70) 08/29/17 19:13 Hgb 14.4 gm/dL (12-16) 08/29/17 19:13 Hct 44.4 % (41.0-60) 08/29/17 19:13 MCV 93.1 fl (80-99) 08/29/17 19:13 MCH 30.2 pg (26.0-30.0) H 08/29/17 19:13 MCHC Differential 32.4 pg (28.0-36.0) 08/29/17 19:13 RDW 12.1 % (11.5-20.0) 08/29/17 19:13 Plt Count 394 Th/cmm (150-400) 08/29/17 19:13 MPV 7.6 fl 08/29/17 19:13 Neutrophils % 60.6 % (40.0-80.0) 08/29/17 19:13 Lymphocytes % 30.0 % (20.0-50.0) 08/29/17 19:13 Monocytes % 6.2 % (2.0-10.0) 08/29/17 19:13 Eosinophils % 2.9 % (0.0-5.0) 08/29/17 19:13 Basophils % 0.3 % (0.0-2.0) 08/29/17 19:13 Sodium 136 mEq/L (136-145) 08/29/17 19:13 Potassium 4.0 mEq/L (3.5-5.1) 08/29/17 19:13 Chloride 102 mEq/L (98-107) 08/29/17 19:13 Carbon Dioxide 29.0 mEq/L (21.0-31.0) 08/29/17 19:13 Anion Gap 9.0 (7.0-16.0) 08/29/17 19:13 BUN 30 mg/dL (7-25) H 08/29/17 19:13 Creatinine 1.1 mg/dL (0.7-1.3) 08/29/17 19:13 Est GFR ( Amer) > 60.0 ml/min (>90) 08/29/17 19:13 Est GFR (Non-Af Amer) > 60.0 ml/min 08/29/17 19:13 BUN/Creatinine Ratio 27.3 08/29/17 19:13 Glucose 320 mg/dL (70-105) H 08/29/17 19:13 POC Glucose 268 MG/DL (70 - 105) H 09/04/17 17:51 Hemoglobin A1c % 8.9 % (4.0-6.0) H 08/29/17 19:13 Calcium 9.2 mg/dL (8.6-10.3) 08/29/17 19:13 Total Bilirubin 0.5 mg/dL (0.3-1.0) 08/29/17 19:13 AST 43 U/L (13-39) H 08/29/17 19:13 ALT 104 U/L (7-52) H 08/29/17 19:13 Alkaline Phosphatase 85 U/L (34-104) 08/29/17 19:13 Total Protein 6.6 gm/dL (6.0-8.3) 08/29/17 19:13 Albumin 3.8 gm/dL (4.2-5.5) L 08/29/17 19:13 Globulin 2.8 gm/dL 08/29/17 19:13 Albumin/Globulin Ratio 1.4 (1.0-1.8) 08/29/17 19:13 Triglycerides 156 mg/dL (<150) H 08/29/17 19:13 Cholesterol 143 mg/dL (<200) 08/29/17 19:13 LDL Cholesterol Direct 91 mg/dL (75-193) 08/29/17 19:13 HDL Cholesterol 38 mg/dL (23-92) 08/29/17 19:13 TSH 4.57 uIU/ml (0.34-5.60) 08/29/17 19:13 RPR NONREACTIVE (NONREACTIVE) 08/29/17 19:13 - Physical Exam Vitals and I&O: Vital Signs Temp 98.4 F 09/05/17 20:25 Pulse 70 09/05/17 20:25 Resp 19 09/05/17 20:25 BP 145/87 09/05/17 20:25 Pulse Ox 96 09/05/17 20:25 Intake & Output 09/05/17 09/05/17 09/06/17 06:59 18:59 06:59 Intake Total 120 800 250 Balance 120 800 250 Intake: Oral 120 800 250 Other: # Voids 3 3 2 # Bowel Movements 1 0 0 Stool Characteristics Soft Active Medications: Current Medications Acetaminophen (Tylenol) 650 mg PO Q4H PRN PRN Reason: Pain (Mild) Stop: 10/29/17 06:03 Amlodipine Besylate (Norvasc) 10 mg PO DAILY [facility] Stop: 10/29/17 08:59 Last Admin: 09/05/17 08:56 Dose: 10 mg Dextromethorphan/Quinidine (Nuedexta 20mg-10mg) 1 cap PO DAILY [facility] Stop: 10/29/17 08:59 Last Admin: 09/05/17 08:57 Dose: 1 cap Insulin Aspart (Novolog) 0 units SUBQ BID [facility] PRN Reason: Protocol Stop: 10/29/17 08:59 Last Admin: 09/05/17 16:35 Dose: 6 unit Levetiracetam (Keppra) 500 mg PO BID [facility] Stop: 10/29/17 08:59 Last Admin: 09/05/17 16:34 Dose: 500 mg Lorazepam (Ativan) 1 mg PO Q4HR PRN; Protocol PRN Reason: Anxiety Stop: 09/29/17 00:18 Last Admin: 09/04/17 20:44 Dose: 1 mg Magnesium Hydroxide (Milk Of Magnesia) 30 ml PO DAILY [facility] Stop: 10/29/17 08:59 Last Admin: 09/05/17 08:59 Dose: 30 ml Metoprolol Tartrate (Lopressor) 100 mg PO DAILY [facility] Stop: 10/29/17 08:59 Last Admin: 09/05/17 08:58 Dose: 100 mg Quetiapine Fumarate (Seroquel) 12.5 mg PO BID [facility] PRN Reason: Protocol Stop: 10/29/17 16:59 Last Admin: 09/05/17 16:34 Dose: 12.5 mg Quetiapine Fumarate (Seroquel) 50 mg PO HS [facility] PRN Reason: Protocol Stop: 10/31/17 11:50 Last Admin: 09/04/17 20:44 Dose: 50 mg General: alert HEENT: NC/AT, PERRLA Neck: Supple Lungs: CTAB Abdomen: soft, non-tender, non-distended, positive bowel sound Neurological: no change - Procedures Procedures: Procedures Procedure Code Date FIX G/COLON TUBE W/DEVICE 62562 03/12/09 INSERTION OF INFUSION DEVICE INTO UPPER VEIN, PERC APPROACH [id number] 05/11/16 REMOV GASTROSTOMY TUBE 97.51 03/12/09 Internal Medicine Assmt/Plan - Assessment Assessment: psychosis htn - Plan Plan: continue current plan of care Nutritional Asmnt/Malnutr-PDOC - Dietary Evaluation Malnutrition Findings (Please click <Entered> for more info): Nutritional Asmnt/Malnutrition Start: 08/30/17 13: 54 Text: Status: Complete Freq: Document 08/30/17 13:54 [facility] (Rec: 08/30/17 14:06 [email or web address]) Nutritional Asmnt/Malnutrition Patient General Information Nutritional Screening High Risk Consult Diagnosis agitation, psychosis Pertinent Medical Hx/Surgical Hx HTN, DM, CVA/TIA, CKD, aphagia , metabolic encephalopathy Subjective Information Consult received for glucose 320 at admission. Pt seen sitting in israel-chair in dinning room, confused and Peruvian speaking, not appropriate for interview or education. Spoke with nurse, pt ate well, PO intake 100%. Current Diet Order/ Nutrition Support CCHO-60gm, low fat, low chlesterol Pertinent Medications novolog Pertinent Labs 08/29 Na 136, K 4.0, Cl 102, BUN 30, Cr 1.1, Glucose 320, A1c 8.9, Alb 3.8, AST 43, ALT 104 Nutritional Hx/Data Height 5 ft Height (Calculated Centimeters) 152.4 Current Weight (lbs) 125 lb Weight (Calculated Kilograms) 56.7 Weight (Calculated Grams) 01853.0 [place] Body Weight 106 Body Mass Index (BMI) 24.4 Weight Status Approriate GI Symptoms GI Symptoms None Last BM no record since adm Difficult in: None Skin Integrity/Comment: intact Current %PO Good (75-100%) Estimated Nutritional Goals BEE in Kcals: Using Current wt Calories/Kcals/Kg 25-30 Kcals Calculated 0133-6341 Protein: Using Current wt Protein g/k-1.2 Protein Calculated 57-68 Fluid: ml 1425-1710ml (1ml/kcal) Nutritional Problem 1. Problem Problem altered nutrition related lab values Etiology hx of DM Signs/Symptoms: Glucose 320, A1c 8.9 Malnutrition Alert Protein-Calorie Malnutrition N/A Is there a minimum of two criteria No selected? Query Text:Check all the applicable criteria. A minimum of two criteria are recommended for diagnosis of either severe or non-severe malnutrition. Intervention/Recommendation Comments 1. Continue with current diet as ordered. Will provide nutrition education when pt mentaly capable. 2. Monitor PO intake, wt, labs and skin integrity 3. F/U as moderate risk in 3-5 days, 3/3-3/5 Expected Outcomes/Goals Expected Outcomes/Goals 1. PO intake to meet at least 75% of nutritional needs. 2. Wt stability, skin to remain intact, labs to approach WNL.
[2017-09-06] MEDS: Magnesium Hydroxide (MOM) 30 mL UDC PO SCH (08:06)
[2017-09-06] MEDS: Multivitamin w/ Minerals Tab PO SCH (08:07)
[2017-09-06] MEDS: Dextromethorphan/Quinidine 20mg/10mg Cap PO SCH (08:09)
[2017-09-06] MEDS: INSULIN ASPART, RECOMBINANT 100 UNITS/ML SUBQ SCH ×2 (08:16→16:50)
--- NOTE | 2017-09-06 09:18 | General Progress Note ---
Subjective - Review of Systems Events since last encounter: unpredictable awake, confused Objective - Results Result Diagrams: 08/29/17 19:13 08/29/17 19:13 Recent Labs: Laboratory Last Values WBC 8.3 Th/cmm (4.8-10.8) 08/29/17 19:13 RBC 4.77 Mil/cmm (4.30-5.70) 08/29/17 19:13 Hgb 14.4 gm/dL (12-16) 08/29/17 19:13 Hct 44.4 % (41.0-60) 08/29/17 19:13 MCV 93.1 fl (80-99) 08/29/17 19:13 MCH 30.2 pg (26.0-30.0) H 08/29/17 19:13 MCHC Differential 32.4 pg (28.0-36.0) 08/29/17 19:13 RDW 12.1 % (11.5-20.0) 08/29/17 19:13 Plt Count 394 Th/cmm (150-400) 08/29/17 19:13 MPV 7.6 fl 08/29/17 19:13 Neutrophils % 60.6 % (40.0-80.0) 08/29/17 19:13 Lymphocytes % 30.0 % (20.0-50.0) 08/29/17 19:13 Monocytes % 6.2 % (2.0-10.0) 08/29/17 19:13 Eosinophils % 2.9 % (0.0-5.0) 08/29/17 19:13 Basophils % 0.3 % (0.0-2.0) 08/29/17 19:13 Sodium 136 mEq/L (136-145) 08/29/17 19:13 Potassium 4.0 mEq/L (3.5-5.1) 08/29/17 19:13 Chloride 102 mEq/L (98-107) 08/29/17 19:13 Carbon Dioxide 29.0 mEq/L (21.0-31.0) 08/29/17 19:13 Anion Gap 9.0 (7.0-16.0) 08/29/17 19:13 BUN 30 mg/dL (7-25) H 08/29/17 19:13 Creatinine 1.1 mg/dL (0.7-1.3) 08/29/17 19:13 Est GFR ( Amer) > 60.0 ml/min (>90) 08/29/17 19:13 Est GFR (Non-Af Amer) > 60.0 ml/min 08/29/17 19:13 BUN/Creatinine Ratio 27.3 08/29/17 19:13 Glucose 320 mg/dL (70-105) H 08/29/17 19:13 POC Glucose 350 MG/DL (70 - 105) H 09/06/17 08:10 Hemoglobin A1c % 8.9 % (4.0-6.0) H 08/29/17 19:13 Calcium 9.2 mg/dL (8.6-10.3) 08/29/17 19:13 Total Bilirubin 0.5 mg/dL (0.3-1.0) 08/29/17 19:13 AST 43 U/L (13-39) H 08/29/17 19:13 ALT 104 U/L (7-52) H 08/29/17 19:13 Alkaline Phosphatase 85 U/L (34-104) 08/29/17 19:13 Total Protein 6.6 gm/dL (6.0-8.3) 08/29/17 19:13 Albumin 3.8 gm/dL (4.2-5.5) L 08/29/17 19:13 Globulin 2.8 gm/dL 08/29/17 19:13 Albumin/Globulin Ratio 1.4 (1.0-1.8) 08/29/17 19:13 Triglycerides 156 mg/dL (<150) H 08/29/17 19:13 Cholesterol 143 mg/dL (<200) 08/29/17 19:13 LDL Cholesterol Direct 91 mg/dL (75-193) 08/29/17 19:13 HDL Cholesterol 38 mg/dL (23-92) 08/29/17 19:13 TSH 4.57 uIU/ml (0.34-5.60) 08/29/17 19:13 RPR NONREACTIVE (NONREACTIVE) 08/29/17 19:13 - Physical Exam Vitals and I&O: Vital Signs Temp 98.4 F 09/05/17 20:25 Pulse 76 09/06/17 08:08 Resp 19 09/05/17 20:25 BP 162/95 03/07/18 08:08 Pulse Ox 96 09/05/17 20:25 Intake & Output 09/05/17 09/06/17 09/06/17 18:59 06:59 18:59 Intake Total 800 250 Balance 800 250 Intake: Oral 800 250 Other: # Voids 3 2 # Bowel Movements 0 0 Active Medications: Current Medications Acetaminophen (Tylenol) 650 mg PO Q4H PRN PRN Reason: Pain (Mild) Stop: 10/29/17 06:03 Amlodipine Besylate (Norvasc) 10 mg PO DAILY [facility] Stop: 10/29/17 08:59 Last Admin: 09/06/17 08:07 Dose: 10 mg Dextromethorphan/Quinidine (Nuedexta 20mg-10mg) 1 cap PO DAILY [facility] Stop: 10/29/17 08:59 Last Admin: 09/06/17 08:09 Dose: 1 cap Insulin Aspart (Novolog) 0 units SUBQ BID [facility] PRN Reason: Protocol Stop: 10/29/17 08:59 Last Admin: 09/06/17 08:16 Dose: 8 unit Levetiracetam (Keppra) 500 mg PO BID [facility] Stop: 10/29/17 08:59 Last Admin: 09/06/17 08:09 Dose: 500 mg Lorazepam (Ativan) 1 mg PO Q4HR PRN; Protocol PRN Reason: Anxiety Stop: 09/29/17 00:18 Last Admin: 09/06/17 08:07 Dose: 1 mg Magnesium Hydroxide (Milk Of Magnesia) 30 ml PO DAILY [facility] Stop: 10/29/17 08:59 Last Admin: 09/06/17 08:06 Dose: 30 ml Metoprolol Tartrate (Lopressor) 100 mg PO DAILY [facility] Stop: 10/29/17 08:59 Last Admin: 09/06/17 08:08 Dose: 100 mg Quetiapine Fumarate (Seroquel) 12.5 mg PO BID [facility] PRN Reason: Protocol Stop: 10/29/17 16:59 Last Admin: 09/06/17 08:09 Dose: 12.5 mg Quetiapine Fumarate (Seroquel) 50 mg PO HS [facility] PRN Reason: Protocol Stop: 10/31/17 11:50 Last Admin: 09/05/17 21:31 Dose: 50 mg - Procedures Procedures: Procedures Procedure Code Date FIX G/COLON TUBE W/DEVICE 59157 03/12/09 INSERTION OF INFUSION DEVICE INTO UPPER VEIN, PERC APPROACH [id number] 05/11/16 REMOV GASTROSTOMY TUBE 97.51 03/12/09 Nutritional Asmnt/Malnutr-PDOC - Dietary Evaluation Malnutrition Findings (Please click <Entered> for more info): Nutritional Asmnt/Malnutrition Start: 08/30/17 13: 54 Text: Status: Complete Freq: Document 08/30/17 13:54 [facility] (Rec: 08/30/17 14[email or web address] Nutritional Asmnt/Malnutrition Patient General Information Nutritional Screening High Risk Consult Diagnosis agitation, psychosis Pertinent Medical Hx/Surgical Hx HTN, DM, CVA/TIA, CKD, aphagia , metabolic encephalopathy Subjective Information Consult received for glucose 320 at admission. Pt seen sitting in israel-chair in dinning room, confused and Burkinan speaking, not appropriate for interview or education. Spoke with nurse, pt ate well, PO intake 100%. Current Diet Order/ Nutrition Support CCHO-60gm, low fat, low chlesterol Pertinent Medications novolog Pertinent Labs 08/29 Na 136, K 4.0, Cl 102, BUN 30, Cr 1.1, Glucose 320, A1c 8.9, Alb 3.8, AST 43, ALT 104 Nutritional Hx/Data Height 1.52 m Height (Calculated Centimeters) 152.4 Current Weight (lbs) 56.699 kg Weight (Calculated Kilograms) 56.7 Weight (Calculated Grams) 73596.0 [place] Body Weight 106 Body Mass Index (BMI) 24.4 Weight Status Approriate GI Symptoms GI Symptoms None Last BM no record since adm Difficult in: None Skin Integrity/Comment: intact Current %PO Good (75-100%) Estimated Nutritional Goals BEE in Kcals: Using Current wt Calories/Kcals/Kg 25-30 Kcals Calculated 1003-2999 Protein: Using Current wt Protein g/k-1.2 Protein Calculated 57-68 Fluid: ml 1425-1710ml (1ml/kcal) Nutritional Problem 1. Problem Problem altered nutrition related lab values Etiology hx of DM Signs/Symptoms: Glucose 320, A1c 8.9 Malnutrition Alert Protein-Calorie Malnutrition N/A Is there a minimum of two criteria No selected? Query Text:Check all the applicable criteria. A minimum of two criteria are recommended for diagnosis of either severe or non-severe malnutrition. Intervention/Recommendation Comments 1. Continue with current diet as ordered. Will provide nutrition education when pt mentaly capable. 2. Monitor PO intake, wt, labs and skin integrity 3. F/U as moderate risk in 3-5 days, 3/3-3/5 Expected Outcomes/Goals Expected Outcomes/Goals 1. PO intake to meet at least 75% of nutritional needs. 2. Wt stability, skin to remain intact, labs to approach WNL.
--- NOTE | 2017-09-06 17:29 | Progress Notes ---
DATE: The patient seen, chart reviewed, discussed with staff. The patient remains unpredictable, still on a Heidi chair, not making any sense, rambling speech, requiring a lot of redirection and prompting, sleeping fairly well at night. MEDICATIONS: Reviewed. ASSESSMENT: The patient remains symptomatic, still in a Heidi chair, highly unpredictable but some improvement noted, somewhat calmer. PLAN: We will continue to monitor. Given recent dose escalation of medications, we will continue at current dose. JOB# [id number]
[2017-09-07] MEDS: Dextromethorphan/Quinidine 20mg/10mg Cap PO SCH (08:18)
[2017-09-07] MEDS: Magnesium Hydroxide (MOM) 30 mL UDC PO SCH (08:18)
[2017-09-07] MEDS: Multivitamin w/ Minerals Tab PO SCH (08:18)
[2017-09-07] MEDS: INSULIN ASPART, RECOMBINANT 100 UNITS/ML SUBQ SCH ×2 (08:35→16:56)
--- NOTE | 2017-09-07 11:33 | General Progress Note ---
Subjective - Review of Systems Events since last encounter: patient awake alert confused irritable Objective - Results Result Diagrams: 08/29/17 19:13 08/29/17 19:13 Recent Labs: Laboratory Last Values WBC 8.3 Th/cmm (4.8-10.8) 08/29/17 19:13 RBC 4.77 Mil/cmm (4.30-5.70) 08/29/17 19:13 Hgb 14.4 gm/dL (12-16) 08/29/17 19:13 Hct 44.4 % (41.0-60) 08/29/17 19:13 MCV 93.1 fl (80-99) 08/29/17 19:13 MCH 30.2 pg (26.0-30.0) H 08/29/17 19:13 MCHC Differential 32.4 pg (28.0-36.0) 08/29/17 19:13 RDW 12.1 % (11.5-20.0) 08/29/17 19:13 Plt Count 394 Th/cmm (150-400) 08/29/17 19:13 MPV 7.6 fl 08/29/17 19:13 Neutrophils % 60.6 % (40.0-80.0) 08/29/17 19:13 Lymphocytes % 30.0 % (20.0-50.0) 08/29/17 19:13 Monocytes % 6.2 % (2.0-10.0) 08/29/17 19:13 Eosinophils % 2.9 % (0.0-5.0) 08/29/17 19:13 Basophils % 0.3 % (0.0-2.0) 08/29/17 19:13 Sodium 136 mEq/L (136-145) 08/29/17 19:13 Potassium 4.0 mEq/L (3.5-5.1) 08/29/17 19:13 Chloride 102 mEq/L (98-107) 08/29/17 19:13 Carbon Dioxide 29.0 mEq/L (21.0-31.0) 08/29/17 19:13 Anion Gap 9.0 (7.0-16.0) 08/29/17 19:13 BUN 30 mg/dL (7-25) H 08/29/17 19:13 Creatinine 1.1 mg/dL (0.7-1.3) 08/29/17 19:13 Est GFR ( Amer) > 60.0 ml/min (>90) 08/29/17 19:13 Est GFR (Non-Af Amer) > 60.0 ml/min 08/29/17 19:13 BUN/Creatinine Ratio 27.3 08/29/17 19:13 Glucose 320 mg/dL (70-105) H 08/29/17 19:13 POC Glucose 258 MG/DL (70 - 105) H 09/07/17 08:27 Hemoglobin A1c % 8.9 % (4.0-6.0) H 08/29/17 19:13 Calcium 9.2 mg/dL (8.6-10.3) 08/29/17 19:13 Total Bilirubin 0.5 mg/dL (0.3-1.0) 08/29/17 19:13 AST 43 U/L (13-39) H 08/29/17 19:13 ALT 104 U/L (7-52) H 08/29/17 19:13 Alkaline Phosphatase 85 U/L (34-104) 08/29/17 19:13 Total Protein 6.6 gm/dL (6.0-8.3) 08/29/17 19:13 Albumin 3.8 gm/dL (4.2-5.5) L 08/29/17 19:13 Globulin 2.8 gm/dL 08/29/17 19:13 Albumin/Globulin Ratio 1.4 (1.0-1.8) 08/29/17 19:13 Triglycerides 156 mg/dL (<150) H 08/29/17 19:13 Cholesterol 143 mg/dL (<200) 08/29/17 19:13 LDL Cholesterol Direct 91 mg/dL (75-193) 08/29/17 19:13 HDL Cholesterol 38 mg/dL (23-92) 08/29/17 19:13 TSH 4.57 uIU/ml (0.34-5.60) 08/29/17 19:13 RPR NONREACTIVE (NONREACTIVE) 08/29/17 19:13 - Physical Exam Vitals and I&O: Vital Signs Temp 97.6 F 09/07/17 05:53 Pulse 74 09/07/17 08:13 Resp 18 09/07/17 08:00 BP 137/95 09/07/17 08:13 Pulse Ox 99 09/07/17 05:53 Intake & Output 09/06/17 09/07/17 09/07/17 18:59 06:59 18:59 Intake Total 800 120 Balance 800 120 Intake: Oral 800 120 Other: # Voids 3 3 # Bowel Movements 1 0 Active Medications: Current Medications Acetaminophen (Tylenol) 650 mg PO Q4H PRN PRN Reason: Pain (Mild) Stop: 10/29/17 06:03 Amlodipine Besylate (Norvasc) 10 mg PO DAILY [facility] Stop: 10/29/17 08:59 Last Admin: 09/07/17 08:12 Dose: 10 mg Dextromethorphan/Quinidine (Nuedexta 20mg-10mg) 1 cap PO DAILY [facility] Stop: 10/29/17 08:59 Last Admin: 09/07/17 08:18 Dose: 1 cap Insulin Aspart (Novolog) 0 units SUBQ BID [facility] PRN Reason: Protocol Stop: 11/05/17 16:29 Last Admin: 09/07/17 08:35 Dose: 6 unit Levetiracetam (Keppra) 500 mg PO BID [facility] Stop: 10/29/17 08:59 Last Admin: 09/07/17 08:18 Dose: 500 mg Lorazepam (Ativan) 1 mg PO Q4HR PRN; Protocol PRN Reason: Anxiety Stop: 09/29/17 00:18 Last Admin: 09/07/17 08:18 Dose: 1 mg Magnesium Hydroxide (Milk Of Magnesia) 30 ml PO DAILY [facility] Stop: 10/29/17 08:59 Last Admin: 09/07/17 08:18 Dose: 30 ml Metoprolol Tartrate (Lopressor) 100 mg PO DAILY [facility] Stop: 10/29/17 08:59 Last Admin: 09/07/17 08:13 Dose: 100 mg Quetiapine Fumarate (Seroquel) 12.5 mg PO BID [facility] PRN Reason: Protocol Stop: 10/29/17 16:59 Last Admin: 09/07/17 08:17 Dose: 12.5 mg Quetiapine Fumarate (Seroquel) 50 mg PO HS [facility] PRN Reason: Protocol Stop: 10/31/17 11:50 Last Admin: 09/06/17 21:38 Dose: 50 mg - Procedures Procedures: Procedures Procedure Code Date FIX G/COLON TUBE W/DEVICE 01526 03/12/09 INSERTION OF INFUSION DEVICE INTO UPPER VEIN, PERC APPROACH [id number] 05/11/16 REMOV GASTROSTOMY TUBE 97.51 03/12/09 Nutritional Asmnt/Malnutr-PDOC - Dietary Evaluation Malnutrition Findings (Please click <Entered> for more info): Nutritional Asmnt/Malnutrition Start: 08/30/17 13: 54 Text: Status: Complete Freq: Document 08/30/17 13:54 [facility] (Rec: 08/30/17 14:06 [email or web address] Nutritional Asmnt/Malnutrition Patient General Information Nutritional Screening High Risk Consult Diagnosis agitation, psychosis Pertinent Medical Hx/Surgical Hx HTN, DM, CVA/TIA, CKD, aphagia , metabolic encephalopathy Subjective Information Consult received for glucose 320 at admission. Pt seen sitting in israel-chair in dinning room, confused and Portuguese speaking, not appropriate for interview or education. Spoke with nurse, pt ate well, PO intake 100%. Current Diet Order/ Nutrition Support CCHO-60gm, low fat, low chlesterol Pertinent Medications novolog Pertinent Labs 08/29 Na 136, K 4.0, Cl 102, BUN 30, Cr 1.1, Glucose 320, A1c 8.9, Alb 3.8, AST 43, ALT 104 Nutritional Hx/Data Height 1.52 m Height (Calculated Centimeters) 152.4 Current Weight (lbs) 56.699 kg Weight (Calculated Kilograms) 56.7 Weight (Calculated Grams) 69587.0 [place] Body Weight 106 Body Mass Index (BMI) 24.4 Weight Status Approriate GI Symptoms GI Symptoms None Last BM no record since adm Difficult in: None Skin Integrity/Comment: intact Current %PO Good (75-100%) Estimated Nutritional Goals BEE in Kcals: Using Current wt Calories/Kcals/Kg 25-30 Kcals Calculated 3031-6059 Protein: Using Current wt Protein g/k-1.2 Protein Calculated 57-68 Fluid: ml 1425-1710ml (1ml/kcal) Nutritional Problem 1. Problem Problem altered nutrition related lab values Etiology hx of DM Signs/Symptoms: Glucose 320, A1c 8.9 Malnutrition Alert Protein-Calorie Malnutrition N/A Is there a minimum of two criteria No selected? Query Text:Check all the applicable criteria. A minimum of two criteria are recommended for diagnosis of either severe or non-severe malnutrition. Intervention/Recommendation Comments 1. Continue with current diet as ordered. Will provide nutrition education when pt mentaly capable. 2. Monitor PO intake, wt, labs and skin integrity 3. F/U as moderate risk in 3-5 days, 3/3-3/5 Expected Outcomes/Goals Expected Outcomes/Goals 1. PO intake to meet at least 75% of nutritional needs. 2. Wt stability, skin to remain intact, labs to approach WNL.
--- NOTE | 2017-09-07 16:11 | Progress Notes ---
DATE: 09/07/2017 The patient seen, chart reviewed, discussed with staff. The patient remains unpredictable, still in a Heidi chair at times, rambling speech, talking to self, mumbling to self, highly impulsive, unpredictable, not making any sense on exam. Medications were noted. ASSESSMENT AND PLAN: The patient remains symptomatic in a Heidi chair, highly unpredictable, still unruly at times, however he is somewhat calmer, more cooperative. His behavior seemed to be improving. We will continue to monitor and follow up. It seems he also has a diagnosis of a pseudobulbar affect. [facility]# [id number]
[2017-09-08] MEDS: Dextromethorphan/Quinidine 20mg/10mg Cap PO SCH (09:15)
[2017-09-08] MEDS: Magnesium Hydroxide (MOM) 30 mL UDC PO SCH (09:15)
[2017-09-08] MEDS: Multivitamin w/ Minerals Tab PO SCH (09:15)
[2017-09-08] MEDS: INSULIN ASPART, RECOMBINANT 100 UNITS/ML SUBQ SCH ×2 (09:34→16:37)
--- NOTE | 2017-09-08 17:45 | Internal Medicine Prog Note ---
Internal Medicine Subjective - Subjective Service Date: 09/08/17 Patient is:: awake Per staff patient has:: tolerating meds Internal Medicine Objective - Results Result Diagrams: 08/29/17 19:13 08/29/17 19:13 Recent Labs: Laboratory Last Values WBC 8.3 Th/cmm (4.8-10.8) 08/29/17 19:13 RBC 4.77 Mil/cmm (4.30-5.70) 08/29/17 19:13 Hgb 14.4 gm/dL (12-16) 08/29/17 19:13 Hct 44.4 % (41.0-60) 08/29/17 19:13 MCV 93.1 fl (80-99) 08/29/17 19:13 MCH 30.2 pg (26.0-30.0) H 08/29/17 19:13 MCHC Differential 32.4 pg (28.0-36.0) 08/29/17 19:13 RDW 12.1 % (11.5-20.0) 08/29/17 19:13 Plt Count 394 Th/cmm (150-400) 08/29/17 19:13 MPV 7.6 fl 08/29/17 19:13 Neutrophils % 60.6 % (40.0-80.0) 08/29/17 19:13 Lymphocytes % 30.0 % (20.0-50.0) 08/29/17 19:13 Monocytes % 6.2 % (2.0-10.0) 08/29/17 19:13 Eosinophils % 2.9 % (0.0-5.0) 08/29/17 19:13 Basophils % 0.3 % (0.0-2.0) 08/29/17 19:13 Sodium 136 mEq/L (136-145) 08/29/17 19:13 Potassium 4.0 mEq/L (3.5-5.1) 08/29/17 19:13 Chloride 102 mEq/L (98-107) 08/29/17 19:13 Carbon Dioxide 29.0 mEq/L (21.0-31.0) 08/29/17 19:13 Anion Gap 9.0 (7.0-16.0) 08/29/17 19:13 BUN 30 mg/dL (7-25) H 08/29/17 19:13 Creatinine 1.1 mg/dL (0.7-1.3) 08/29/17 19:13 Est GFR ( Amer) > 60.0 ml/min (>90) 08/29/17 19:13 Est GFR (Non-Af Amer) > 60.0 ml/min 08/29/17 19:13 BUN/Creatinine Ratio 27.3 08/29/17 19:13 Glucose 320 mg/dL (70-105) H 08/29/17 19:13 POC Glucose 242 MG/DL (70 - 105) H 09/08/17 16:30 Hemoglobin A1c % 8.9 % (4.0-6.0) H 08/29/17 19:13 Calcium 9.2 mg/dL (8.6-10.3) 08/29/17 19:13 Total Bilirubin 0.5 mg/dL (0.3-1.0) 08/29/17 19:13 AST 43 U/L (13-39) H 08/29/17 19:13 ALT 104 U/L (7-52) H 08/29/17 19:13 Alkaline Phosphatase 85 U/L (34-104) 08/29/17 19:13 Total Protein 6.6 gm/dL (6.0-8.3) 08/29/17 19:13 Albumin 3.8 gm/dL (4.2-5.5) L 08/29/17 19:13 Globulin 2.8 gm/dL 08/29/17 19:13 Albumin/Globulin Ratio 1.4 (1.0-1.8) 08/29/17 19:13 Triglycerides 156 mg/dL (<150) H 08/29/17 19:13 Cholesterol 143 mg/dL (<200) 08/29/17 19:13 LDL Cholesterol Direct 91 mg/dL (75-193) 08/29/17 19:13 HDL Cholesterol 38 mg/dL (23-92) 08/29/17 19:13 TSH 4.57 uIU/ml (0.34-5.60) 08/29/17 19:13 RPR NONREACTIVE (NONREACTIVE) 08/29/17 19:13 - Physical Exam Vitals and I&O: Vital Signs Temp 98.3 F 09/08/17 14:00 Pulse 63 09/08/17 14:00 Resp 18 09/08/17 14:00 BP 125/68 09/08/17 14:00 Pulse Ox 96 09/08/17 14:00 Intake & Output 09/07/17 09/08/17 09/08/17 18:59 06:59 18:59 Intake Total 1200 400 Output Total 1 Balance 1200 399 Intake: Oral 1200 400 Output: Stool 1 Other: # Voids 2 # Bowel Movements 1 0 Active Medications: Current Medications Acetaminophen (Tylenol) 650 mg PO Q4H PRN PRN Reason: Pain (Mild) Stop: 10/29/17 06:03 Amlodipine Besylate (Norvasc) 10 mg PO DAILY [facility] Stop: 10/29/17 08:59 Last Admin: 09/08/17 09:15 Dose: 10 mg Dextromethorphan/Quinidine (Nuedexta 20mg-10mg) 1 cap PO DAILY [facility] Stop: 10/29/17 08:59 Last Admin: 09/08/17 09:15 Dose: 1 cap Insulin Aspart (Novolog) 0 units SUBQ BID [facility] PRN Reason: Protocol Stop: 11/05/17 16:29 Last Admin: 09/08/17 16:37 Dose: 4 unit Levetiracetam (Keppra) 500 mg PO BID [facility] Stop: 10/29/17 08:59 Last Admin: 09/08/17 16:29 Dose: 500 mg Lorazepam (Ativan) 1 mg PO Q4HR PRN; Protocol PRN Reason: Anxiety Stop: 09/29/17 00:18 Last Admin: 09/08/17 09:15 Dose: 1 mg Magnesium Hydroxide (Milk Of Magnesia) 30 ml PO DAILY [facility] Stop: 10/29/17 08:59 Last Admin: 09/08/17 09:15 Dose: 30 ml Metoprolol Tartrate (Lopressor) 100 mg PO DAILY [facility] Stop: 10/29/17 08:59 Last Admin: 09/08/17 09:15 Dose: 100 mg Quetiapine Fumarate (Seroquel) 12.5 mg PO BID [facility] PRN Reason: Protocol Stop: 10/29/17 16:59 Last Admin: 09/08/17 16:29 Dose: 12.5 mg Quetiapine Fumarate (Seroquel) 50 mg PO HS [facility] PRN Reason: Protocol Stop: 10/31/17 11:50 Last Admin: 09/07/17 21:37 Dose: 50 mg General: alert HEENT: NC/AT, PERRLA Neck: Supple Lungs: CTAB Abdomen: soft, non-tender, non-distended, positive bowel sound Neurological: no change - Procedures Procedures: Procedures Procedure Code Date FIX G/COLON TUBE W/DEVICE 74791 03/12/09 INSERTION OF INFUSION DEVICE INTO UPPER VEIN, PERC APPROACH [id number] 05/11/16 REMOV GASTROSTOMY TUBE 97.51 03/12/09 Internal Medicine Assmt/Plan - Assessment Assessment: psychosis htn - Plan Plan: continue current plan of care Nutritional Asmnt/Malnutr-PDOC - Dietary Evaluation Malnutrition Findings (Please click <Entered> for more info): Nutritional Asmnt/Malnutrition Start: 08/30/17 13: 54 Text: Status: Complete Freq: Document 08/30/17 13:54 [facility] (Rec: 08/30/17 14:06 [facility]-[email or web address]) Nutritional Asmnt/Malnutrition Patient General Information Nutritional Screening High Risk Consult Diagnosis agitation, psychosis Pertinent Medical Hx/Surgical Hx HTN, DM, CVA/TIA, CKD, aphagia , metabolic encephalopathy Subjective Information Consult received for glucose 320 at admission. Pt seen sitting in israel-chair in dinning room, confused and Telugu speaking, not appropriate for interview or education. Spoke with nurse, pt ate well, PO intake 100%. Current Diet Order/ Nutrition Support CCHO-60gm, low fat, low chlesterol Pertinent Medications novolog Pertinent Labs 08/29 Na 136, K 4.0, Cl 102, BUN 30, Cr 1.1, Glucose 320, A1c 8.9, Alb 3.8, AST 43, ALT 104 Nutritional Hx/Data Height 5 ft Height (Calculated Centimeters) 152.4 Current Weight (lbs) 125 lb Weight (Calculated Kilograms) 56.7 Weight (Calculated Grams) 47506.0 [place] Body Weight 106 Body Mass Index (BMI) 24.4 Weight Status Approriate GI Symptoms GI Symptoms None Last BM no record since adm Difficult in: None Skin Integrity/Comment: intact Current %PO Good (75-100%) Estimated Nutritional Goals BEE in Kcals: Using Current wt Calories/Kcals/Kg 25-30 Kcals Calculated 2061-1070 Protein: Using Current wt Protein g/k-1.2 Protein Calculated 57-68 Fluid: ml 1425-1710ml (1ml/kcal) Nutritional Problem 1. Problem Problem altered nutrition related lab values Etiology hx of DM Signs/Symptoms: Glucose 320, A1c 8.9 Malnutrition Alert Protein-Calorie Malnutrition N/A Is there a minimum of two criteria No selected? Query Text:Check all the applicable criteria. A minimum of two criteria are recommended for diagnosis of either severe or non-severe malnutrition. Intervention/Recommendation Comments 1. Continue with current diet as ordered. Will provide nutrition education when pt mentaly capable. 2. Monitor PO intake, wt, labs and skin integrity 3. F/U as moderate risk in 3-5 days, 3/3-3/5 Expected Outcomes/Goals Expected Outcomes/Goals 1. PO intake to meet at least 75% of nutritional needs. 2. Wt stability, skin to remain intact, labs to approach WNL.
--- NOTE | 2017-09-08 20:25 | Progress Notes ---
DATE: 09/08/2017 SUBJECTIVE: The patient is sleeping, but arousable, not answering any questions, still moaning at times, still in a Heidi chair, remains unruly, somewhat unpredictable, gets agitated at times, overall calmer, seems to be tolerating medications. The patient is sleeping, but does not appear to be over sedated. He wakes up quite easily. Medications were noted. ASSESSMENT: The patient remains symptomatic, unruly at times, still highly impulsive, but seems to be doing better. PLAN: We will continue to monitor. Continue medications at current dose given improvement. We will coordinate care with social work regarding safe discharge plan and good psychiatric followup. JOB# [id number]
[2017-09-09] MEDS: Magnesium Hydroxide (MOM) 30 mL UDC PO SCH (08:19)
[2017-09-09] MEDS: Dextromethorphan/Quinidine 20mg/10mg Cap PO SCH (08:20)
[2017-09-09] MEDS: Multivitamin w/ Minerals Tab PO SCH (08:21)
[2017-09-09] MEDS: INSULIN ASPART, RECOMBINANT 100 UNITS/ML SUBQ SCH ×3 (08:39→16:51)
--- NOTE | 2017-09-09 15:38 | Progress Notes ---
DATE: 09/09/2017 SUBJECTIVE: The patient was seen in his room, lying in the bed. The patient is a poor historian due to medical condition otherwise the patient appears to be in no acute distress. OBJECTIVE: VITAL SIGNS: Temperature 98.1, heart rate of 70, blood pressure ____/75, respirations of 18, and 98% on room air. HEENT: Head is atraumatic and normocephalic. Eyes: Bilateral conjunctivae are clear. Bilateral pupils are equally round and reactive. NECK: Supple. No JVD. CARDIOVASCULAR: S1 and S2, without murmur. PULMONARY: Clear to auscultation. GASTROINTESTINAL: Soft and nontender without guarding. Positive bowel sounds. MUSCULOSKELETAL: No clubbing. No cyanosis noted. ASSESSMENT: 1. Mood disorder. 2. Hypertension. 3. Diabetes. 4. Seizure disorder. PLAN: We will keep the patient inpatient Psychiatric Unit. We will put the patient on seizure precaution. Treatment plans were discussed with the patient's nurse. Treatment plans were discussed with Dr. Barroso. JOB# [id number]
--- NOTE | 2017-09-09 22:50 | Progress Notes ---
DATE: 09/09/[address] Montaño covering for Dr. Simms. SUBJECTIVE: Chart reviewed and the patient interviewed. Also discussed the patient's condition with the staff and reviewed records and labs. The patient is still withdrawn, is staying in a Heidi chair all the time. The patient also is still having episodes of agitation and irritability, but less than before. The patient also is still having unpredictable behavior. He also seems to be less sedated than before according to staff. ASSESSMENT: The patient is still having episodes of agitation and impulsivity. TREATMENT PLAN: Continue to monitor his behavior and his condition closely. Also, the patient continues to take Ativan on a p.r.n. basis and also will continue to take Seroquel in a dose of 12.5 mg twice a day and 50 mg at bed time with no side effects. ASSESSMENT: The patient is still agitated and irritable, needs close monitoring. PLAN: We will continue Seroquel same dose and we will continue to follow up closely. JOB# [id number]
[2017-09-10] MEDS: Multivitamin w/ Minerals Tab PO SCH (09:04)
[2017-09-10] MEDS: Magnesium Hydroxide (MOM) 30 mL UDC PO SCH (09:04)
[2017-09-10] MEDS: Dextromethorphan/Quinidine 20mg/10mg Cap PO SCH (09:06)
--- NOTE | 2017-09-10 10:08 | General Progress Note ---
Subjective - Review of Systems Events since last encounter: patient irritable impulsive no acute distress Objective - Results Result Diagrams: 08/29/17 19:13 08/29/17 19:13 Recent Labs: Laboratory Last Values WBC 8.3 Th/cmm (4.8-10.8) 08/29/17 19:13 RBC 4.77 Mil/cmm (4.30-5.70) 08/29/17 19:13 Hgb 14.4 gm/dL (12-16) 08/29/17 19:13 Hct 44.4 % (41.0-60) 08/29/17 19:13 MCV 93.1 fl (80-99) 08/29/17 19:13 MCH 30.2 pg (26.0-30.0) H 08/29/17 19:13 MCHC Differential 32.4 pg (28.0-36.0) 08/29/17 19:13 RDW 12.1 % (11.5-20.0) 08/29/17 19:13 Plt Count 394 Th/cmm (150-400) 08/29/17 19:13 MPV 7.6 fl 08/29/17 19:13 Neutrophils % 60.6 % (40.0-80.0) 08/29/17 19:13 Lymphocytes % 30.0 % (20.0-50.0) 08/29/17 19:13 Monocytes % 6.2 % (2.0-10.0) 08/29/17 19:13 Eosinophils % 2.9 % (0.0-5.0) 08/29/17 19:13 Basophils % 0.3 % (0.0-2.0) 08/29/17 19:13 Sodium 136 mEq/L (136-145) 08/29/17 19:13 Potassium 4.0 mEq/L (3.5-5.1) 08/29/17 19:13 Chloride 102 mEq/L (98-107) 08/29/17 19:13 Carbon Dioxide 29.0 mEq/L (21.0-31.0) 08/29/17 19:13 Anion Gap 9.0 (7.0-16.0) 08/29/17 19:13 BUN 30 mg/dL (7-25) H 08/29/17 19:13 Creatinine 1.1 mg/dL (0.7-1.3) 08/29/17 19:13 Est GFR ( Amer) > 60.0 ml/min (>90) 08/29/17 19:13 Est GFR (Non-Af Amer) > 60.0 ml/min 08/29/17 19:13 BUN/Creatinine Ratio 27.3 08/29/17 19:13 Glucose 320 mg/dL (70-105) H 08/29/17 19:13 POC Glucose 434 MG/DL (70 - 105) H 09/10/17 09:29 Hemoglobin A1c % 8.9 % (4.0-6.0) H 08/29/17 19:13 Calcium 9.2 mg/dL (8.6-10.3) 08/29/17 19:13 Total Bilirubin 0.5 mg/dL (0.3-1.0) 08/29/17 19:13 AST 43 U/L (13-39) H 08/29/17 19:13 ALT 104 U/L (7-52) H 08/29/17 19:13 Alkaline Phosphatase 85 U/L (34-104) 08/29/17 19:13 Total Protein 6.6 gm/dL (6.0-8.3) 08/29/17 19:13 Albumin 3.8 gm/dL (4.2-5.5) L 08/29/17 19:13 Globulin 2.8 gm/dL 08/29/17 19:13 Albumin/Globulin Ratio 1.4 (1.0-1.8) 08/29/17 19:13 Triglycerides 156 mg/dL (<150) H 08/29/17 19:13 Cholesterol 143 mg/dL (<200) 08/29/17 19:13 LDL Cholesterol Direct 91 mg/dL (75-193) 08/29/17 19:13 HDL Cholesterol 38 mg/dL (23-92) 08/29/17 19:13 TSH 4.57 uIU/ml (0.34-5.60) 08/29/17 19:13 RPR NONREACTIVE (NONREACTIVE) 08/29/17 19:13 - Physical Exam Vitals and I&O: Vital Signs Temp 98.4 F 09/10/17 06:29 Pulse 68 09/10/17 09:05 Resp 19 09/10/17 06:29 BP 142/78 09/10/17 09:05 Pulse Ox 97 09/10/17 06:29 Intake & Output 09/09/17 09/10/17 09/10/17 17:59 06:59 18:59 Intake Total Output Total Balance Intake: Oral Output: Stool Other: # Voids # Bowel Movements Active Medications: Current Medications Acetaminophen (Tylenol) 650 mg PO Q4H PRN PRN Reason: Pain (Mild) Stop: 10/29/17 06:03 Amlodipine Besylate (Norvasc) 10 mg PO DAILY [facility] Stop: 10/29/17 08:59 Last Admin: 09/10/17 09:05 Dose: 10 mg Dextromethorphan/Quinidine (Nuedexta 20mg-10mg) 1 cap PO DAILY [facility] Stop: 10/29/17 08:59 Last Admin: 09/10/17 09:06 Dose: 1 cap Insulin Aspart (Novolog) 0 units SUBQ AC [facility] PRN Reason: Protocol Stop: 11/09/17 11:29 Levetiracetam (Keppra) 500 mg PO BID [facility] Stop: 10/29/17 08:59 Last Admin: 09/10/17 09:05 Dose: 500 mg Lorazepam (Ativan) 1 mg PO Q4HR PRN; Protocol PRN Reason: Anxiety Stop: 09/29/17 00:18 Last Admin: 09/08/17 09:15 Dose: 1 mg Magnesium Hydroxide (Milk Of Magnesia) 30 ml PO DAILY [facility] Stop: 10/29/17 08:59 Last Admin: 09/10/17 09:04 Dose: 30 ml Metoprolol Tartrate (Lopressor) 100 mg PO DAILY [facility] Stop: 10/29/17 08:59 Last Admin: 09/10/17 09:05 Dose: 100 mg Quetiapine Fumarate (Seroquel) 12.5 mg PO BID [facility] PRN Reason: Protocol Stop: 10/29/17 16:59 Last Admin: 09/10/17 09:06 Dose: 12.5 mg Quetiapine Fumarate (Seroquel) 50 mg PO HS [facility] PRN Reason: Protocol Stop: 10/31/17 11:50 Last Admin: 09/09/17 20:50 Dose: 50 mg - Procedures Procedures: Procedures Procedure Code Date FIX G/COLON TUBE W/DEVICE 40838 03/12/09 INSERTION OF INFUSION DEVICE INTO UPPER VEIN, PERC APPROACH [id number] 05/11/16 REMOV GASTROSTOMY TUBE 97.51 03/12/09 Nutritional Asmnt/Malnutr-PDOC - Dietary Evaluation Malnutrition Findings (Please click <Entered> for more info): Nutritional Asmnt/Malnutrition Start: 08/30/17 13: 54 Text: Status: Complete Freq: Document 08/30/17 13:54 JULIANA (Rec: 08/30/17 14:06 [email or web address] Nutritional Asmnt/Malnutrition Patient General Information Nutritional Screening High Risk Consult Diagnosis agitation, psychosis Pertinent Medical Hx/Surgical Hx HTN, DM, CVA/TIA, CKD, aphagia , metabolic encephalopathy Subjective Information Consult received for glucose 320 at admission. Pt seen sitting in israel-chair in dinning room, confused and Yoruba speaking, not appropriate for interview or education. Spoke with nurse, pt ate well, PO intake 100%. Current Diet Order/ Nutrition Support CCHO-60gm, low fat, low chlesterol Pertinent Medications novolog Pertinent Labs 08/29 Na 136, K 4.0, Cl 102, BUN 30, Cr 1.1, Glucose 320, A1c 8.9, Alb 3.8, AST 43, ALT 104 Nutritional Hx/Data Height 1.52 m Height (Calculated Centimeters) 152.4 Current Weight (lbs) 56.699 kg Weight (Calculated Kilograms) 56.7 Weight (Calculated Grams) 82609.0 [place] Body Weight 106 Body Mass Index (BMI) 24.4 Weight Status Approriate GI Symptoms GI Symptoms None Last BM no record since adm Difficult in: None Skin Integrity/Comment: intact Current %PO Good (75-100%) Estimated Nutritional Goals BEE in Kcals: Using Current wt Calories/Kcals/Kg 25-30 Kcals Calculated 3045-1010 Protein: Using Current wt Protein g/k-1.2 Protein Calculated 57-68 Fluid: ml 1425-1710ml (1ml/kcal) Nutritional Problem 1. Problem Problem altered nutrition related lab values Etiology hx of DM Signs/Symptoms: Glucose 320, A1c 8.9 Malnutrition Alert Protein-Calorie Malnutrition N/A Is there a minimum of two criteria No selected? Query Text:Check all the applicable criteria. A minimum of two criteria are recommended for diagnosis of either severe or non-severe malnutrition. Intervention/Recommendation Comments 1. Continue with current diet as ordered. Will provide nutrition education when pt mentaly capable. 2. Monitor PO intake, wt, labs and skin integrity 3. F/U as moderate risk in 3-5 days, /3-5 Expected Outcomes/Goals Expected Outcomes/Goals 1. PO intake to meet at least 75% of nutritional needs. 2. Wt stability, skin to remain intact, labs to approach WNL.
[2017-09-10] MEDS ORDERED: INSULIN ASPART, RECOMBINANT 100 UNITS/ML SUBQ SCH ×2 (11:30→16:30)
[2017-09-10] MEDS: INSULIN ASPART SLIDING SCALE 100 UNITS/ML UNIT SUBQ SCH (17:30)
--- NOTE | 2017-09-10 18:27 | Progress Notes ---
DATE: 09/10/2017 PSYCHIATRIC PROGRESS NOTE Chart reviewed and the patient interviewed. Also discussed the patient's condition with the staff and reviewed records and labs. The patient is still withdrawn and is still anxious. The patient also is staying in Heidi chair most of the time and still has episodes of anger and irritability and easily agitated. The patient also still seems to be suspicious and confused. Also, unpredictable behavior. Otherwise, the patient is not sedated. ASSESSMENT: The patient still has episodes of agitation and impulsivity. TREATMENT PLAN: Continue to monitor his behavior and his condition closely. Also, continue Seroquel 12.5 mg twice a day and 50 mg at bedtime and we will continue to follow up closely. [facility]# [id number]
[2017-09-11] MEDS ORDERED: INSULIN ASPART, RECOMBINANT 100 UNITS/ML SUBQ SCH (06:30)
[2017-09-11] MEDS: INSULIN ASPART SLIDING SCALE 100 UNITS/ML UNIT SUBQ SCH ×2 (06:31→16:30)
[2017-09-11] MEDS: Magnesium Hydroxide (MOM) 30 mL UDC PO SCH (08:23)
[2017-09-11] MEDS: Multivitamin w/ Minerals Tab PO SCH (08:23)
[2017-09-11] MEDS: Dextromethorphan/Quinidine 20mg/10mg Cap PO SCH (08:23)
--- NOTE | 2017-09-11 09:28 | General Progress Note ---
Subjective - Review of Systems Events since last encounter: patient still confused no signs of pain Objective - Results Result Diagrams: 08/29/17 19:13 08/29/17 19:13 Recent Labs: Laboratory Last Values WBC 8.3 Th/cmm (4.8-10.8) 08/29/17 19:13 RBC 4.77 Mil/cmm (4.30-5.70) 08/29/17 19:13 Hgb 14.4 gm/dL (12-16) 08/29/17 19:13 Hct 44.4 % (41.0-60) 08/29/17 19:13 MCV 93.1 fl (80-99) 08/29/17 19:13 MCH 30.2 pg (26.0-30.0) H 08/29/17 19:13 MCHC Differential 32.4 pg (28.0-36.0) 08/29/17 19:13 RDW 12.1 % (11.5-20.0) 08/29/17 19:13 Plt Count 394 Th/cmm (150-400) 08/29/17 19:13 MPV 7.6 fl 08/29/17 19:13 Neutrophils % 60.6 % (40.0-80.0) 08/29/17 19:13 Lymphocytes % 30.0 % (20.0-50.0) 08/29/17 19:13 Monocytes % 6.2 % (2.0-10.0) 08/29/17 19:13 Eosinophils % 2.9 % (0.0-5.0) 08/29/17 19:13 Basophils % 0.3 % (0.0-2.0) 08/29/17 19:13 Sodium 136 mEq/L (136-145) 08/29/17 19:13 Potassium 4.0 mEq/L (3.5-5.1) 08/29/17 19:13 Chloride 102 mEq/L (98-107) 08/29/17 19:13 Carbon Dioxide 29.0 mEq/L (21.0-31.0) 08/29/17 19:13 Anion Gap 9.0 (7.0-16.0) 08/29/17 19:13 BUN 30 mg/dL (7-25) H 08/29/17 19:13 Creatinine 1.1 mg/dL (0.7-1.3) 08/29/17 19:13 Est GFR ( Amer) > 60.0 ml/min (>90) 08/29/17 19:13 Est GFR (Non-Af Amer) > 60.0 ml/min 08/29/17 19:13 BUN/Creatinine Ratio 27.3 08/29/17 19:13 Glucose 320 mg/dL (70-105) H 08/29/17 19:13 POC Glucose 211 MG/DL (70 - 105) H 09/11/17 06:21 Hemoglobin A1c % 8.9 % (4.0-6.0) H 08/29/17 19:13 Calcium 9.2 mg/dL (8.6-10.3) 08/29/17 19:13 Total Bilirubin 0.5 mg/dL (0.3-1.0) 08/29/17 19:13 AST 43 U/L (13-39) H 08/29/17 19:13 ALT 104 U/L (7-52) H 08/29/17 19:13 Alkaline Phosphatase 85 U/L (34-104) 08/29/17 19:13 Total Protein 6.6 gm/dL (6.0-8.3) 08/29/17 19:13 Albumin 3.8 gm/dL (4.2-5.5) L 08/29/17 19:13 Globulin 2.8 gm/dL 08/29/17 19:13 Albumin/Globulin Ratio 1.4 (1.0-1.8) 08/29/17 19:13 Triglycerides 156 mg/dL (<150) H 08/29/17 19:13 Cholesterol 143 mg/dL (<200) 08/29/17 19:13 LDL Cholesterol Direct 91 mg/dL (75-193) 08/29/17 19:13 HDL Cholesterol 38 mg/dL (23-92) 08/29/17 19:13 TSH 4.57 uIU/ml (0.34-5.60) 08/29/17 19:13 RPR NONREACTIVE (NONREACTIVE) 08/29/17 19:13 - Physical Exam Vitals and I&O: Vital Signs Temp 97.6 F 09/11/17 06:39 Pulse 60 09/11/17 08:26 Resp 20 09/11/17 06:39 BP 127/83 09/11/17 08:26 Pulse Ox 97 09/11/17 06:39 Intake & Output 09/10/17 09/11/17 09/11/17 18:59 06:59 18:59 Intake Total 1320 Balance 1320 Intake: Oral 1320 Other: # Voids 3 Active Medications: Current Medications Acetaminophen (Tylenol) 650 mg PO Q4H PRN PRN Reason: Pain (Mild) Stop: 10/29/17 06:03 Amlodipine Besylate (Norvasc) 10 mg PO DAILY [facility] Stop: 10/29/17 08:59 Last Admin: 09/11/17 08:26 Dose: 10 mg Dextromethorphan/Quinidine (Nuedexta 20mg-10mg) 1 cap PO DAILY [facility] Stop: 10/29/17 08:59 Last Admin: 09/11/17 08:23 Dose: 1 cap Insulin Aspart (Novolog Insulin Sliding Scale) 0 units SUBQ 1630 [facility] PRN Reason: Protocol Stop: 11/09/17 16:29 Last Admin: 09/10/17 17:30 Dose: 10 units Insulin Aspart (Novolog Insulin Sliding Scale) 0 units SUBQ 0630 [facility] PRN Reason: Protocol Stop: 11/10/17 06:29 Last Admin: 09/11/17 06:31 Dose: 4 units Levetiracetam (Keppra) 500 mg PO BID [facility] Stop: 10/29/17 08:59 Last Admin: 09/11/17 08:23 Dose: 500 mg Lorazepam (Ativan) 1 mg PO Q4HR PRN; Protocol PRN Reason: Anxiety Stop: 09/29/17 00:18 Last Admin: 09/08/17 09:15 Dose: 1 mg Magnesium Hydroxide (Milk Of Magnesia) 30 ml PO DAILY [facility] Stop: 10/29/17 08:59 Last Admin: 09/11/17 08:23 Dose: 30 ml Metoprolol Tartrate (Lopressor) 100 mg PO DAILY [facility] Stop: 10/29/17 08:59 Last Admin: 09/11/17 08:23 Dose: 100 mg Quetiapine Fumarate (Seroquel) 12.5 mg PO BID [facility] PRN Reason: Protocol Stop: 10/29/17 16:59 Last Admin: 09/11/17 08:24 Dose: 12.5 mg Quetiapine Fumarate (Seroquel) 50 mg PO HS [facility] PRN Reason: Protocol Stop: 10/31/17 11:50 Last Admin: 09/10/17 21:18 Dose: 50 mg - Procedures Procedures: Procedures Procedure Code Date FIX G/COLON TUBE W/DEVICE 76871 03/12/09 INSERTION OF INFUSION DEVICE INTO UPPER VEIN, PERC APPROACH [id number] 05/11/16 REMOV GASTROSTOMY TUBE 97.51 03/12/09 Nutritional Asmnt/Malnutr-PDOC - Dietary Evaluation Malnutrition Findings (Please click <Entered> for more info): Nutritional Asmnt/Malnutrition Start: 08/30/17 13: 54 Text: Status: Complete Freq: Document 08/30/17 13:54 AZUCENA (Rec: 08/30/17 14:06 AZUCENA [facility]ACINTA-[email or web address]) Nutritional Asmnt/Malnutrition Patient General Information Nutritional Screening High Risk Consult Diagnosis agitation, psychosis Pertinent Medical Hx/Surgical Hx HTN, DM, CVA/TIA, CKD, aphagia , metabolic encephalopathy Subjective Information Consult received for glucose 320 at admission. Pt seen sitting in israel-chair in dinning room, confused and Slovenian speaking, not appropriate for interview or education. Spoke with nurse, pt ate well, PO intake 100%. Current Diet Order/ Nutrition Support CCHO-60gm, low fat, low chlesterol Pertinent Medications novolog Pertinent Labs 08/29 Na 136, K 4.0, Cl 102, BUN 30, Cr 1.1, Glucose 320, A1c 8.9, Alb 3.8, AST 43, ALT 104 Nutritional Hx/Data Height 1.52 m Height (Calculated Centimeters) 152.4 Current Weight (lbs) 56.699 kg Weight (Calculated Kilograms) 56.7 Weight (Calculated Grams) 15090.0 [place] Body Weight 106 Body Mass Index (BMI) 24.4 Weight Status Approriate GI Symptoms GI Symptoms None Last BM no record since adm Difficult in: None Skin Integrity/Comment: intact Current %PO Good (75-100%) Estimated Nutritional Goals BEE in Kcals: Using Current wt Calories/Kcals/Kg 25-30 Kcals Calculated 5904-5702 Protein: Using Current wt Protein g/k-1.2 Protein Calculated 57-68 Fluid: ml 1425-1710ml (1ml/kcal) Nutritional Problem 1. Problem Problem altered nutrition related lab values Etiology hx of DM Signs/Symptoms: Glucose 320, A1c 8.9 Malnutrition Alert Protein-Calorie Malnutrition N/A Is there a minimum of two criteria No selected? Query Text:Check all the applicable criteria. A minimum of two criteria are recommended for diagnosis of either severe or non-severe malnutrition. Intervention/Recommendation Comments 1. Continue with current diet as ordered. Will provide nutrition education when pt mentaly capable. 2. Monitor PO intake, wt, labs and skin integrity 3. F/U as moderate risk in 3-5 days, 3/3-3/5 Expected Outcomes/Goals Expected Outcomes/Goals 1. PO intake to meet at least 75% of nutritional needs. 2. Wt stability, skin to remain intact, labs to approach WNL.
--- NOTE | 2017-09-11 21:11 | Progress Notes ---
DATE: 09/11/2017 The patient is seen, chart reviewed, discussed with staff. The patient seems to be calmer, more cooperative, mostly in a Heidi chair at times labile, angry, irritable, but these symptoms seem to be dissipating. He does seem to be calmer, more cooperative, less unruly, staff noting improvement. Currently still in a Heidi chair, but he is calm. Currently on Seroquel, which seems to be improving his mood and his impulse control. ASSESSMENT: The patient still remains symptomatic, still unruly at times, impulsive and unpredictable, but improvement noted. We will continue to monitor. Medications were reviewed. We will coordinate care with social work regarding safe discharge plan and good psychiatric followup. [facility]# [id number]
[2017-09-12] MEDS: INSULIN ASPART SLIDING SCALE 100 UNITS/ML UNIT SUBQ SCH (07:05)
[2017-09-12] MEDS: Dextromethorphan/Quinidine 20mg/10mg Cap PO SCH (09:58)
[2017-09-12] MEDS: Multivitamin w/ Minerals Tab PO SCH (09:58)
[2017-09-12] MEDS: Magnesium Hydroxide (MOM) 30 mL UDC PO SCH (10:00)
--- NOTE | 2017-09-12 11:29 | Discharge Summary ---
DATE OF DISCHARGE: 09/12/2017 JUSTIFICATION FOR HOSPITALIZATION: Agitation, striking out behaviors. HISTORY OF PRESENT ILLNESS: A 62-year-old male, aggressive, agitated, striking out at staff, apparently hallucinating, mumbling nonsensical, receiving emergency medications on initial presentation, not a good historian. PAST PSYCHIATRIC HISTORY: Metabolic encephalopathy. SOCIAL HISTORY: Reviewed. MEDICATIONS: Noted, came in on Remeron. MENTAL STATUS EXAMINATION: Please see full psych eval for details. PROVISIONAL DIAGNOSES: Mood unspecified; psychosis, unspecified; rule out schizophrenia versus schizoaffective versus bipolar affective disorder. Unclear if he has a dementia diagnosis, but history of cerebrovascular accidents in the past. His mood symptoms could be explained by assaults to the brain. Under medical, please see full H and P including CVAs. HOSPITAL COURSE: After initial assessment, the patient was initiated and started on medications including Seroquel. Seroquel was adjusted and titrated. Over the course of the hospitalization, his mood, improved; his affect improved. Seems to be getting along better with staff and peers, calmer, more cooperative, still mumbling, difficult to understand fully, but no agitation, no escalation of behaviors, toward the latter end of his hospitalization, he was calm, cooperative and devoid of any symptoms. CONDITION UPON DISCHARGE: Improved, allowing ADLs, good eye contact. Speech mumbling, difficult to understand, moaning at times. Affect constricted. Thought processes still disoriented and impoverished. No suicidal gestures. No aggressive behaviors. No evidence of any psychotic symptoms, better impulse control, seemingly better insight, following rules and directions. MEDICATIONS: Noted. Tolerating well. No side effects. PROGNOSIS: The patient follows up with outpatient mental services and remains treatment compliant. Prognosis will improve, otherwise guarded. DISCHARGE DIAGNOSES: Psychosis, unspecified; mood, unspecified; rule out schizophrenia versus bipolar; rule out dementia; rule out vascular dementia; also history of pseudobulbar affect. Under medical, seizure disorder. JOB# [id number]
== END 2017-09-12 13:30 | disposition home or self-care (01) | DRG 885 ==
LOC: ER 18:23 → GERO 20:40
PROVIDERS: ADMIT Psychiatry & Neurology Psychiatry; ATTEND Psychiatry & Neurology Psychiatry
DX: F23 Brief psychotic disorder (principal); N18.9 Chronic kidney disease, unspecified; E11.65 Type 2 diabetes mellitus with hyperglycemia; E11.22 Type 2 diabetes mellitus with diabetic chronic kidney disease; I69.351 Hemiplegia and hemiparesis following cerebral infarction affecting right dominant side; G40.909 Epilepsy, unspecified, not intractable, without status epilepticus; F39 Unspecified mood [affective] disorder; I12.9 Hypertensive chronic kidney disease with stage 1 through stage 4 chronic kidney disease, or unspecified chronic kidney disease
CPT/HCPCS: 36415-UA; 80053-TC; 80061-TC; 82948-90; 83036-90; 84443-TC; 85025-TC; 86592-TC; 90899; 93005; J1200; J1630; J1815; J2060; Z7610

== ENCOUNTER 2017-09-29 17:49 | Inpatient (IN) | payer MEDICARE, MEDICAID ==
--- NOTE | 2017-09-29 18:40 | ED Physician Chart ---
ED Chief Complaint/HPI - Patient Information Date Seen:: 09/29/17 Time Seen:: 18:40 Chief Complaint:: Agitation History of Present Illness:: 62 yo male was brought from [facility] to ER for evaluation of increased agitation and aggressive behavior. The patient was s/p left frontal craniotomy for brain aneurysm with resulting right hemiparesis. Allergies:: Allergies Allergy/AdvReac Type Severity Reaction Status Date / Time No Known Allergies Allergy Verified 03/27/16 22:52 Vitals:: Vital Signs - 8 hr 09/29/17 18:06 Temp 97.3 F HR 62 RR 18 BP 160/96 O2 Sat % 97 ED Review of Systems - Review of Systems General/Constitutional: No fever Skin: No bruising Head: No headache Eyes: No pain ENT: No sore throat Neck: No neck pain Cardio Vascular: No chest pain Pulmonary: No SOB GI: No nausea, No vomiting Musculoskeletal: No bone or joint pain ED Past Medical History - Past Medical History Past Medical History: HTN, DM, Seizures, Other (Brain aneurysm) Social History: Non Smoker, No Alcohol, No Drug Use Psychiatricy History: Depression, Other (psychosis) Family Medical History - Family Member Mother History Unknown: Yes Ethnicity: Unknown Living Status: Unknown Hx Family Cancer: (unknown) Hx Family Coronary Artery Disease: (unknown) Hx Family Congestive Heart Failure: (unknown) Hx Family Hypertension: (unknown) Hx Family Stroke: (unknown) Hx Family Diabetes: (unknown) Hx Family Seizures: (unknown) Hx Family Dementia: (unknown) Hx Family AIDS: (unknown) Hx Family HIV: No Hx Family COPD: (unknown) Hx Family Hepatitis: (unknown) Hx Family Psychiatric Problems: (unknown) Hx Family Tuberculosis: (unknown) ED Physical Exam - Physical Examination General/Constitutional: Awake, Alert Other Head comments:: Left frontal craniotomy incision wound well healed, left CHANGE ATTENDANT shunt intact Skin: No ecchymosis ENMT: Nasal exam nl Neck: No nuchal rigidity Respiratory: Clear to Auscultation Cardio Vascular: No murmur, gallop, rubs GI: No tenderness/rebounding/guarding Extremities: No tenderness or effusion Other Neuro/Psych comments:: Non-verbal, right hand contracture, RUE 3/5, RLE 3/5, LUE 5/5, LLE 5/5, Left Barbinski positive ED Labs/Radiology/EKG Results - Radiology Results Results: CXR: no consolidation ED Assessment - Assessment General Assessment: Psychosis DM II with hyperglycemia S/p craniotomy for brain aneurysm CHANGE ATTENDANT shunt Seizures Assessment/Comments:: CBC, CMP, UA CXR, EKG Glucose control Ad[facility] ED Septic Shock - . Is Septic Shock (SBP<90, OR Lactate>4 mmol\L) present?: No - <6hrs of presentation: Vital Signs: Vital Signs - 8 hr 09/29/17 18:06 Temp 97.3 F HR 62 RR 18 BP 160/96 O2 Sat % 97 ED Reassessment (Disposition) - Reassessment Reassessment Condition:: Unchanged - Patient Disposition Discharge/Transfer:: [facility] w/in this hosp Admitting Medical Physician:: Mirta Barroso Admitting Psych Physician:: Jason Simms ED Discharge Plan - Patient Disposition Admit/Discharge/Transfer: Other Care w/in this hosp
[2017-09-29 19:06] LABS: % BASOPHILS 0.2 % (0.0-2.0); % EOSINOPHILS 4.5 % (0.0-5.0); % LYMPHOCYTES 26.2 % (20.0-50.0); % MONOCYTES 5.7 % (2.0-10.0); % NEUTROPHILS 63.4 % (40.0-80.0); EOSINOPHILE ABSOLUTE 0.3 Th/cmm (0.1-0.4); HEMOGLOBIN 14.4 gm/dL (12-16); LYMPHOCYTE ABSOLUTE 1.6 Th/cmm (1.5-3.0); MEAN CELL VOLUME 90.2 fl (80-99); MEAN CORPUSCULAR HEMOGLOBIN 30.1 pg (26.0-30.0); MEAN CORPUSCULAR HGB CONC 33.4 pg (28.0-36.0); MEAN PLATELET VOLUME 8.1 fl; MONOCYTE ABSOLUTE 0.3 Th/cmm (0.3-1.0); NEUTROPHILE ABSOLUTE 3.9 Th/cmm (1.8-8.0); PLATELET COUNT 397 Th/cmm (150-400); RED BLOOD COUNT 4.77 Mil/cmm (4.30-5.70); RED CELL DISTRIBUTION WIDTH 12.5 % (11.5-20.0); WHITE BLOOD COUNT 6.1 Th/cmm (4.8-10.8)
[2017-09-29 19:19] LABS: INR 0.93 (0.5-1.4); PROTHROMBIN TIME (TEST) 9.7 SECONDS (9.5-11.5)
[2017-09-29 19:22] LABS: ALB/GLOB RATIO 1.3 (1.0-1.8); ALBUMIN 3.9 gm/dL (4.2-5.5); ALKALINE PHOSPHATASE 88 U/L (34-104); ANION GAP 13.1 (7.0-16.0); BILIRUBIN,TOTAL 0.6 mg/dL (0.3-1.0); BUN - UREA NITROGEN 28 mg/dL (7-25); CALCIUM SERUM 9.3 mg/dL (8.6-10.3); CHLORIDE 104 mEq/L (98-107); CREATININE - SERUM 1.1 mg/dL (0.7-1.3); GFR AFRICAN-AMERICAN > 60.0 ml/min (>90); GFR NON AFRICAN-AMERICAN > 60.0 ml/min; POTASSIUM SERUM 4.1 mEq/L (3.5-5.1); SGOT 47 U/L (13-39); SGPT/ALT 80 U/L (7-52); SODIUM SERUM 141 mEq/L (136-145); TOTAL PROTEIN,SERUM 6.9 gm/dL (6.0-8.3)
[2017-09-29 19:25] LABS: GLUCOSE 462 mg/dL (70-105)
[2017-09-29] MEDS ORDERED: INSULIN HUMAN REGULAR 100 UNITS/ML UNIT SUBQ ONE (19:44)
[2017-09-29] MEDS ORDERED: INSULIN HUMAN REGULAR 100 UNITS/ML UNIT ONE (19:47)
[2017-09-29] MEDS ORDERED: Magnesium Hydroxide (MOM) 30 mL UDC PO PRN (21:16)
[2017-09-29 21:40] VITALS: BP 145/88
[2017-09-30] MEDS: INSULIN ASPART SLIDING SCALE 100 UNITS/ML UNIT SUBQ SCH ×4 (06:40→21:02)
--- NOTE | 2017-09-30 08:32 | History & Physical ---
ADMIT DATE: 09/29/2017 CHIEF COMPLAINT: Agitation. HISTORY OF PRESENT ILLNESS: This is a 62-year-old male who was admitted through the Emergency Room from residential facility due to increase in agitation and aggressive behavior. REVIEW OF SYSTEMS: GENERAL: This is a 62-year-old male that appears as stated. No fever, no chills, no weight loss. HEAD: No headache. No dizziness. EYES: No eye pain. No blurring of vision. NECK: No neck pain. No nuchal rigidity. CHEST: No chest pain. No palpitation. PULMONARY: No shortness of breath. No coughing. GASTROINTESTINAL: No abdominal pain. No constipation. No diarrhea. MUSCULOSKELETAL: No joint pain. No muscle pain. SOCIAL HISTORY: The patient lives in a residential facility prior to hospitalization. PAST MEDICAL HISTORY: Hypertension, diabetes, and brain aneurysm. PSYCHIATRIC HISTORY: Includes depression and anxiety. PAST SURGICAL HISTORY: Unremarkable. FAMILY HISTORY: Unremarkable. PHYSICAL EXAMINATION: VITAL SIGNS: Temperature 97.5, heart rate 56, blood pressure 113/89, respirations 18, and 97% on room air. HEENT: Head is atraumatic and normocephalic. Eyes: Bilateral conjunctivae are clear. Bilaterally pupils equally round and reactive. NECK: Supple. No JVD. CARDIOVASCULAR: S1 and S2, without murmur. PULMONARY: Clear to auscultation. GASTROINTESTINAL: Soft and nontender without guarding. Positive bowel sounds. MUSCULOSKELETAL: No clubbing. No cyanosis noted. ASSESSMENT: 1. Psychosis. 2. Anxiety. 3. Depression. 4. Diabetes. 5. Seizure disorder. 6. History of cerebrovascular accident. 7. Unsteady gait. PLAN: We will keep the patient in senior mental health unit. We will follow up with a psychiatrist to monitor the patient's condition and behavior. We will also do medication reconciliation accordingly. Treatment plans were discussed with the patient's nurse. Treatment plans were discussed with Dr Barroso. JOB# [id number]
--- NOTE | 2017-09-30 08:59 | Diagnostic Imaging Report ---
CHEST X-RAY: AP view INDICATION: pain COMPARISON: 05/12/2016 FINDINGS: Slightly decreased lung volumes are noted. There is no focal consolidation or pleural effusions The heart is normal in size. Atherosclerotic vascular disease noted. The osseous structures are intact. Cholecystectomy clips are noted. A left-sided shunt catheter is noted. Tubing material is seen projecting along the upper abdomen. IMPRESSION: No focal consolidation identified. Atherosclerotic vascular disease.
[2017-09-30] MEDS ORDERED: MIRTAZAPINE PO SCH (09:00)
[2017-09-30] MEDS: Dextromethorphan/Quinidine 20mg/10mg Cap PO SCH ×2 (09:28→09:47)
[2017-09-30] MEDS: Multivitamin w/ Minerals Tab PO SCH ×2 (09:29→09:48)
[2017-09-30] MEDS: Insulin Detemir 100 units/mL 10mL Vial SUBQ SCH ×3 (09:42→21:07)
[2017-09-30 18:38] LABS: A1C % 9.6 % (4.0-6.0)
--- NOTE | 2017-10-01 02:54 | Psychosocial Evaluation ---
DATE OF SERVICE: JUSTIFICATION FOR HOSPITALIZATION: The patient brought in from the shelter for increased agitation and aggressive behaviors. HISTORY OF PRESENT ILLNESS: A 62-year-old male, not talking to me, appears mute, increased agitation, aggressive behaviors, unruly behaviors, lashing out at staff, unable to be cared for at that level of care. PAST PSYCHIATRIC HISTORY: Depression noted. It is unclear if he has a diagnosis of dementia or cognitive decline. FAMILY HISTORY: Noncontributory. PAST MEDICAL HISTORY: Hypertension, diabetes. It seems there may be history of brain aneurysm or stroke. SOCIAL HISTORY: Unclear. I do know that he is coming from [facility] and the [facility]. Unclear family involvement. MEDICATIONS: Reviewed. MENTAL STATUS EXAMINATION: Stated age, a little eye contact. Awake, alert, not talking at all. Mood, unable to assess. Affect flat. Thought processes seemed disengaged. No SI, no HI. No overt psychosis. Insight and judgment diminished. PROVISIONAL DIAGNOSES: Psychosis, unspecified; mood, unspecified; anxiety, unspecified. He seems cognitively impaired. Under medical, please see full H and P. ESTIMATED LENGTH OF STAY: 5-7 days. ASSESSMENT: The patient requiring inpatient hospitalization, unruly, agitated, aggressive. PLAN: We will titrate and adjust medications. TREATMENT PLAN: Includes group as well as milieu therapy. CONDITIONS FOR DISCHARGE: Improved mood, improved affect and better control of any agitation. JOB# [id number]
[2017-10-01] MEDS: INSULIN ASPART SLIDING SCALE 100 UNITS/ML UNIT SUBQ SCH ×4 (06:39→21:15)
[2017-10-01] MEDS: Dextromethorphan/Quinidine 20mg/10mg Cap PO SCH ×2 (09:05→09:38)
[2017-10-01] MEDS: Multivitamin w/ Minerals Tab PO SCH ×2 (09:06→09:37)
[2017-10-01] MEDS: Insulin Detemir 100 units/mL 10mL Vial SUBQ SCH ×2 (09:38→21:15)
[2017-10-01] MEDS ORDERED: MIRTAZAPINE PO SCH (10:14)
--- NOTE | 2017-10-01 11:23 | General Progress Note ---
Subjective - Review of Systems Events since last encounter: patient irritable agitated at times no signs of pain Objective - Results Result Diagrams: 09/29/17 18:56 09/29/17 18:56 Recent Labs: Laboratory Last Values WBC 6.1 Th/cmm (4.8-10.8) 09/29/17 18:56 RBC 4.77 Mil/cmm (4.30-5.70) 09/29/17 18:56 Hgb 14.4 gm/dL (12-16) 09/29/17 18:56 Hct 43.0 % (41.0-60) 09/29/17 18:56 MCV 90.2 fl (80-99) 09/29/17 18:56 MCH 30.1 pg (26.0-30.0) H 09/29/17 18:56 MCHC Differential 33.4 pg (28.0-36.0) 09/29/17 18:56 RDW 12.5 % (11.5-20.0) 09/29/17 18:56 Plt Count 397 Th/cmm (150-400) 09/29/17 18:56 MPV 8.1 fl 09/29/17 18:56 Neutrophils % 63.4 % (40.0-80.0) 09/29/17 18:56 Lymphocytes % 26.2 % (20.0-50.0) 09/29/17 18:56 Monocytes % 5.7 % (2.0-10.0) 09/29/17 18:56 Eosinophils % 4.5 % (0.0-5.0) 09/29/17 18:56 Basophils % 0.2 % (0.0-2.0) 09/29/17 18:56 PT 9.7 SECONDS (9.5-11.5) 09/29/17 18:56 INR 0.93 (0.5-1.4) 09/29/17 18:56 Sodium 141 mEq/L (136-145) 09/29/17 18:56 Potassium 4.1 mEq/L (3.5-5.1) 09/29/17 18:56 Chloride 104 mEq/L (98-107) 09/29/17 18:56 Carbon Dioxide 28.0 mEq/L (21.0-31.0) 09/29/17 18:56 Anion Gap 13.1 (7.0-16.0) 09/29/17 18:56 BUN 28 mg/dL (7-25) H 09/29/17 18:56 Creatinine 1.1 mg/dL (0.7-1.3) 09/29/17 18:56 Est GFR ( Amer) > 60.0 ml/min (>90) 09/29/17 18:56 Est GFR (Non-Af Amer) > 60.0 ml/min 09/29/17 18:56 BUN/Creatinine Ratio 25.5 09/29/17 18:56 Glucose 462 mg/dL (70-105) H* 09/29/17 18:56 POC Glucose 358 MG/DL (70 - 105) H 09/30/17 16:53 Hemoglobin A1c % 9.6 % (4.0-6.0) H 09/29/17 18:56 Calcium 9.3 mg/dL (8.6-10.3) 09/29/17 18:56 Total Bilirubin 0.6 mg/dL (0.3-1.0) 09/29/17 18:56 AST 47 U/L (13-39) H 09/29/17 18:56 ALT 80 U/L (7-52) H 09/29/17 18:56 Alkaline Phosphatase 88 U/L (34-104) 09/29/17 18:56 Troponin I < 0.01 ng/mL (0.01-0.05) L 09/29/17 18:56 Total Protein 6.9 gm/dL (6.0-8.3) 09/29/17 18:56 Albumin 3.9 gm/dL (4.2-5.5) L 09/29/17 18:56 Globulin 3.0 gm/dL 09/29/17 18:56 Albumin/Globulin Ratio 1.3 (1.0-1.8) 09/29/17 18:56 TSH 2.39 uIU/ml (0.34-5.60) 09/29/17 18:56 - Physical Exam Vitals and I&O: Vital Signs Temp 97.5 F 10/01/17 06:30 Pulse 64 10/01/17 06:30 Resp 18 10/01/17 06:30 BP 140/89 10/01/17 06:30 Pulse Ox 95 04/01/18 06:30 Intake & Output 09/30/17 10/01/17 10/01/17 18:59 06:59 18:59 Intake Total 600 360 Balance 600 360 Intake: Oral 600 360 Other: # Voids 3 2 Active Medications: Current Medications Acetaminophen (Tylenol) 650 mg PO Q4HR PRN PRN Reason: Mild Pain / Temp above 100 Stop: 11/28/17 21:15 Amlodipine Besylate (Norvasc) 10 mg PO DAILY [facility] Stop: 11/29/17 08:59 Last Admin: 10/01/17 09:05 Dose: Not Given Dextromethorphan/Quinidine (Nuedexta 20mg-10mg) 1 cap PO DAILY [facility] Stop: 11/29/17 08:59 Last Admin: 10/01/17 09:05 Dose: Not Given Insulin Aspart (Novolog Insulin Sliding Scale) 0 units SUBQ ACHS MARINE PRN Reason: Protocol Stop: 11/29/17 07:29 Last Admin: 10/01/17 06:39 Dose: Not Given Insulin Detemir (Levemir Insulin) 10 units SUBQ Q12HR [facility]INE PRN Reason: Protocol Stop: 11/29/17 08:59 Last Admin: 10/01/17 09:38 Dose: 10 units Levetiracetam (Keppra) 500 mg PO BID [facility] Stop: 11/29/17 08:59 Last Admin: 10/01/17 09:04 Dose: Not Given Lorazepam (Ativan) 0.5 mg PO Q4HR PRN; Protocol PRN Reason: Anxiety/agitation Stop: 10/29/17 21:15 Last Admin: 09/30/17 21:18 Dose: 0.5 mg Magnesium Hydroxide (Milk Of Magnesia) 30 ml PO HS PRN PRN Reason: Constipation Metoprolol Tartrate (Lopressor) 100 mg PO DAILY [facility] Stop: 11/29/17 08:59 Last Admin: 10/01/17 09:06 Dose: Not Given Mirtazapine (Remeron) 7.5 mg PO DAILY [facility] Stop: 12/01/17 08:59 Quetiapine Fumarate (Seroquel) 12.5 mg PO BID [facility] PRN Reason: Protocol Stop: 11/29/17 08:59 Last Admin: 04/01/18 09:07 Dose: Not Given Quetiapine Fumarate (Seroquel) 50 mg PO HS MARINE PRN Reason: Protocol Stop: 11/29/17 20:59 Last Admin: 09/30/17 21:19 Dose: 50 mg Zolpidem Tartrate (Ambien) 5 mg PO HS PRN PRN Reason: Insomnia Stop: 11/28/17 21:15 Last Admin: 09/30/17 21:19 Dose: 5 mg - Procedures Procedures: Procedures Procedure Code Date FIX G/COLON TUBE W/DEVICE 84083 03/12/09 INSERTION OF INFUSION DEVICE INTO UPPER VEIN, PERC APPROACH [id number] 05/11/16 REMOV GASTROSTOMY TUBE 97.51 03/12/09 Nutritional Asmnt/Malnutr-PDOC - Dietary Evaluation Malnutrition Findings (Please click <Entered> for more info): Nutritional Asmnt/Malnutrition Start: 09/30/17 10: 18 Text: Status: Complete Freq: Document 09/30/17 10:18 ERIC (Rec: 09/30/17 10:24 ERIC WORKMAN- [email or web address]) Nutritional Asmnt/Malnutrition Patient General Information Diagnosis Psychosis NOS Pertinent Medical Hx/Surgical Hx HTN, DM, Brain Aneursym, depression Subjective Information Pt reported good appetite and no nutrition concerns at this time. Pt stated that he would like to leave and that he would like to speak with his family. Pertinent Medications s/s insulin, levemir, MOM Pertinent Labs Na 141, K 4.1, Cl 104, CO2 28, BUN 28, Cr 1.1, Ca 9.3, glucose 462 Nutritional Hx/Data Height 1.68 m Height (Calculated Centimeters) 167.6 Current Weight (lbs) 68.039 kg Weight (Calculated Kilograms) 68.0 Weight (Calculated Grams) 01929.9 Body Mass Index (BMI) 24.2 Weight Status Approriate GI Symptoms GI Symptoms None Last BM none noted Cultural/Ethnic/Rastafarian Belief None reported Usual diet at home Pt unable to report Skin Integrity/Comment: Hosea score 18 Current %PO Good (75-100%) Estimated Nutritional Goals BEE in Kcals: Using Current wt Calories/Kcals/Kg 25-30kcals/kg Kcals Calculated 1700-2040kcals/day Protein: Using Current wt Protein g/kg/kg Protein Calculated 68g/day Fluid: ml 1700-2040ml/day (1ml/kcal) Nutritional Problem 1. Problem Problem No nutrition diagnosis at this time Intervention/Recommendation Comments Recommend continuing current diet Expected Outcomes/Goals Expected Outcomes/Goals PO intake >75% of meals
--- NOTE | 2017-10-01 17:41 | Progress Notes ---
DATE: 10/01/2017 The patient is coming in from a care home facility, mute, increased agitation and aggressive behaviors and unruly behaviors. The patient calm at this time. Sleeping, but arousable, appearing disoriented, not saying anything to me, isolative and withdrawn. Medications were noted. ASSESSMENT: The patient remains symptomatic, still unruly, impulsive, unpredictable. PLAN: We will continue to monitor. Continue Seroquel at current dose. We will monitor for any underlying behaviors and will treat appropriately. We will also try to increase socialization. JOB# [id number]
[2017-10-02] MEDS: INSULIN ASPART SLIDING SCALE 100 UNITS/ML UNIT SUBQ SCH ×4 (06:32→21:06)
[2017-10-02] MEDS: Dextromethorphan/Quinidine 20mg/10mg Cap PO SCH (09:26)
[2017-10-02] MEDS: Multivitamin w/ Minerals Tab PO SCH (09:26)
[2017-10-02] MEDS: Insulin Detemir 100 units/mL 10mL Vial SUBQ SCH ×2 (09:48→21:06)
--- NOTE | 2017-10-02 11:38 | General Progress Note ---
Subjective - Review of Systems Service Date: 10/02/17 Subjective: no signs of pain denies discomfort irritable Objective - Results Result Diagrams: 09/29/17 18:56 09/29/17 18:56 Recent Labs: Laboratory Last Values WBC 6.1 Th/cmm (4.8-10.8) 09/29/17 18:56 RBC 4.77 Mil/cmm (4.30-5.70) 09/29/17 18:56 Hgb 14.4 gm/dL (12-16) 09/29/17 18:56 Hct 43.0 % (41.0-60) 09/29/17 18:56 MCV 90.2 fl (80-99) 09/29/17 18:56 MCH 30.1 pg (26.0-30.0) H 09/29/17 18:56 MCHC Differential 33.4 pg (28.0-36.0) 09/29/17 18:56 RDW 12.5 % (11.5-20.0) 09/29/17 18:56 Plt Count 397 Th/cmm (150-400) 09/29/17 18:56 MPV 8.1 fl 09/29/17 18:56 Neutrophils % 63.4 % (40.0-80.0) 09/29/17 18:56 Lymphocytes % 26.2 % (20.0-50.0) 09/29/17 18:56 Monocytes % 5.7 % (2.0-10.0) 09/29/17 18:56 Eosinophils % 4.5 % (0.0-5.0) 09/29/17 18:56 Basophils % 0.2 % (0.0-2.0) 09/29/17 18:56 PT 9.7 SECONDS (9.5-11.5) 09/29/17 18:56 INR 0.93 (0.5-1.4) 09/29/17 18:56 Sodium 141 mEq/L (136-145) 09/29/17 18:56 Potassium 4.1 mEq/L (3.5-5.1) 09/29/17 18:56 Chloride 104 mEq/L (98-107) 09/29/17 18:56 Carbon Dioxide 28.0 mEq/L (21.0-31.0) 09/29/17 18:56 Anion Gap 13.1 (7.0-16.0) 09/29/17 18:56 BUN 28 mg/dL (7-25) H 09/29/17 18:56 Creatinine 1.1 mg/dL (0.7-1.3) 09/29/17 18:56 Est GFR ( Amer) > 60.0 ml/min (>90) 09/29/17 18:56 Est GFR (Non-Af Amer) > 60.0 ml/min 09/29/17 18:56 BUN/Creatinine Ratio 25.5 09/29/17 18:56 Glucose 462 mg/dL (70-105) H* 09/29/17 18:56 POC Glucose 358 MG/DL (70 - 105) H 09/30/17 16:53 Hemoglobin A1c % 9.6 % (4.0-6.0) H 09/29/17 18:56 Calcium 9.3 mg/dL (8.6-10.3) 09/29/17 18:56 Total Bilirubin 0.6 mg/dL (0.3-1.0) 09/29/17 18:56 AST 47 U/L (13-39) H 09/29/17 18:56 ALT 80 U/L (7-52) H 09/29/17 18:56 Alkaline Phosphatase 88 U/L (34-104) 09/29/17 18:56 Troponin I < 0.01 ng/mL (0.01-0.05) L 09/29/17 18:56 Total Protein 6.9 gm/dL (6.0-8.3) 09/29/17 18:56 Albumin 3.9 gm/dL (4.2-5.5) L 09/29/17 18:56 Globulin 3.0 gm/dL 09/29/17 18:56 Albumin/Globulin Ratio 1.3 (1.0-1.8) 09/29/17 18:56 TSH 2.39 uIU/ml (0.34-5.60) 09/29/17 18:56 - Physical Exam Vitals and I&O: Vital Signs Temp 98.2 F 10/02/17 06:03 Pulse 90 10/02/17 09:30 Resp 18 10/02/17 06:03 BP 185/89 10/02/17 09:30 Pulse Ox 99 10/02/17 06:03 Intake & Output 10/01/17 10/02/17 10/02/17 18:59 06:59 18:59 Intake Total 450 360 Balance 450 360 Intake: Oral 450 360 Other: # Voids 2 3 Active Medications: Current Medications Acetaminophen (Tylenol) 650 mg PO Q4HR PRN PRN Reason: Mild Pain / Temp above 100 Stop: 11/28/17 21:15 Amlodipine Besylate (Norvasc) 10 mg PO DAILY [facility] Stop: 11/29/17 08:59 Last Admin: 10/02/17 09:30 Dose: 10 mg Dextromethorphan/Quinidine (Nuedexta 20mg-10mg) 1 cap PO DAILY [facility] Stop: 11/29/17 08:59 Last Admin: 10/02/17 09:26 Dose: 1 cap Insulin Aspart (Novolog Insulin Sliding Scale) 0 units SUBQ ACHS MARINE PRN Reason: Protocol Stop: 11/29/17 07:29 Last Admin: 10/02/17 06:32 Dose: Not Given Insulin Detemir (Levemir Insulin) 10 units SUBQ Q12HR [facility] PRN Reason: Protocol Stop: 11/29/17 08:59 Last Admin: 10/02/17 09:48 Dose: 10 units Levetiracetam (Keppra) 500 mg PO BID [facility] Stop: 11/29/17 08:59 Last Admin: 10/02/17 09:28 Dose: 500 mg Lorazepam (Ativan) 0.5 mg PO Q4HR PRN; Protocol PRN Reason: Anxiety/agitation Stop: 10/29/17 21:15 Last Admin: 09/30/17 21:18 Dose: 0.5 mg Magnesium Hydroxide (Milk Of Magnesia) 30 ml PO HS PRN PRN Reason: Constipation Metoprolol Tartrate (Lopressor) 100 mg PO DAILY [facility] Stop: 11/29/17 08:59 Last Admin: 10/02/17 09:29 Dose: 100 mg Mirtazapine (Remeron) 7.5 mg PO DAILY [facility] Stop: 12/01/17 08:59 Last Admin: 10/02/17 09:26 Dose: 7.5 mg Quetiapine Fumarate (Seroquel) 12.5 mg PO BID [facility] PRN Reason: Protocol Stop: 11/29/17 08:59 Last Admin: 10/02/17 09:28 Dose: 12.5 mg Quetiapine Fumarate (Seroquel) 50 mg PO HS [facility] PRN Reason: Protocol Stop: 11/29/17 20:59 Last Admin: 10/01/17 21:45 Dose: Not Given Zolpidem Tartrate (Ambien) 5 mg PO HS PRN PRN Reason: Insomnia Stop: 11/28/17 21:15 Last Admin: 09/30/17 21:19 Dose: 5 mg - Procedures Procedures: Procedures Procedure Code Date FIX G/COLON TUBE W/DEVICE 88343 03/12/09 INSERTION OF INFUSION DEVICE INTO UPPER VEIN, PERC APPROACH [id number] 05/11/16 REMOV GASTROSTOMY TUBE 97.51 03/12/09 Nutritional Asmnt/Malnutr-PDOC - Dietary Evaluation Malnutrition Findings (Please click <Entered> for more info): Nutritional Asmnt/Malnutrition Start: 09/30/17 10: 18 Text: Status: Complete Freq: Document 09/30/17 10:18 ERIC (Rec: 09/30/17 10:24 ERIC JACINTA- [email or web address]) Nutritional Asmnt/Malnutrition Patient General Information Diagnosis Psychosis NOS Pertinent Medical Hx/Surgical Hx HTN, DM, Brain Aneursym, depression Subjective Information Pt reported good appetite and no nutrition concerns at this time. Pt stated that he would like to leave and that he would like to speak with his family. Pertinent Medications s/s insulin, levemir, MOM Pertinent Labs Na 141, K 4.1, Cl 104, CO2 28, BUN 28, Cr 1.1, Ca 9.3, glucose 462 Nutritional Hx/Data Height 1.68 m Height (Calculated Centimeters) 167.6 Current Weight (lbs) 68.039 kg Weight (Calculated Kilograms) 68.0 Weight (Calculated Grams) 21296.9 Body Mass Index (BMI) 24.2 Weight Status Approriate GI Symptoms GI Symptoms None Last BM none noted Cultural/Ethnic/Adventism Belief None reported Usual diet at home Pt unable to report Skin Integrity/Comment: Hosea score 18 Current %PO Good (75-100%) Estimated Nutritional Goals BEE in Kcals: Using Current wt Calories/Kcals/Kg 25-30kcals/kg Kcals Calculated 1700-2040kcals/day Protein: Using Current wt Protein g/kg/kg Protein Calculated 68g/day Fluid: ml 1700-2040ml/day (1ml/kcal) Nutritional Problem 1. Problem Problem No nutrition diagnosis at this time Intervention/Recommendation Comments Recommend continuing current diet Expected Outcomes/Goals Expected Outcomes/Goals PO intake >75% of meals
--- NOTE | 2017-10-02 20:02 | Progress Notes ---
DATE: 10/02/2017 The patient is coming in from group home mute, increased agitation, aggressive behaviors. However, he is pretty calm at this time, staring blankly, awake, alert. No agitation. No escalation of behaviors. He has been fairly calm and cooperative on the unit following in rules and directions. Medications were also noted including dosages and frequencies. The patient noting he needs some prompting and has been sleeping fairly well at night time. ASSESSMENT: The patient still remains impulsive, unpredictable, but certainly with improvements, seems to be more cooperative. PLAN: We will continue to monitor. Continue Seroquel. JOB# [id number]
[2017-10-03] MEDS: INSULIN ASPART SLIDING SCALE 100 UNITS/ML UNIT SUBQ SCH ×4 (06:53→21:28)
[2017-10-03] MEDS: Dextromethorphan/Quinidine 20mg/10mg Cap PO SCH (11:02)
[2017-10-03] MEDS: Insulin Detemir 100 units/mL 10mL Vial SUBQ SCH ×2 (11:02→21:29)
[2017-10-03] MEDS: Multivitamin w/ Minerals Tab PO SCH (11:11)
--- NOTE | 2017-10-03 16:18 | Progress Notes ---
DATE: 10/03/2017 HISTORY OF PRESENT ILLNESS: The patient is coming from a [place] [facility]. The patient is calmer at this time. No escalation of behavior, he is fairly calm and cooperative on the unit. Medications were noted including doses and frequencies, seems to making improvement. No agitation, no escalation of behaviors. We are trying to confirm placement. The patient is sleeping well, eating well. No events, no agitation, no violence. ASSESSMENT: The patient likely approaching his baseline, calmer, more cooperative, tolerant to treatment. PLAN: We will contact [place] [facility] to confirm placement. JOB# [id number]
[2017-10-04] MEDS: INSULIN ASPART SLIDING SCALE 100 UNITS/ML UNIT SUBQ SCH ×2 (07:02→11:40)
--- NOTE | 2017-10-04 07:09 | Discharge Summary ---
DATE OF DISCHARGE: JUSTIFICATION FOR HOSPITALIZATION: The patient came to the hospital. He was quite unruly, staff could not care [facility] at the [facility], apparently aggressive. HISTORY OF PRESENT ILLNESS: A 62-year-old male, seems to be mute, increased agitation, similar unruly behaviors, lashing out at staff at prison. The patient is a poor historian, I reviewed the chart and reasons for his admission and reviewed his medications. PAST PSYCHIATRIC HISTORY: Noted. FAMILY HISTORY: Noncontributory. PAST MEDICAL HISTORY: Noted. MEDICATIONS: Noted. MENTAL STATUS EXAMINATION: Please see full psych eval for details. PROVISIONAL DIAGNOSES: Psychosis, unspecified; also mood, unspecified; anxiety, unspecified. Also, he seems cognitively impaired. HOSPITAL COURSE: After initial assessment, the patient was admitted to the hospital. Medications were reviewed. He was showing a few symptoms and staff noted he was calm, cooperative, no agitation was noted. No escalation of behaviors. Following unit rules and directions. No behaviors were noted per staff, no distress noted per staff, given his high level of agitation. Upon initial presentation and how he improves over the course of the hospitalization was likely that he may have been acutely delirious, which resolved quite quickly toward the latter end of his hospitalization, no symptoms were present. He was calm, cooperative, friendly. Following rules and directions, allowing ADLs and was discharged once placement was confirmed. CONDITION UPON DISCHARGE: Improved allowing ADLs, good eye contact, awake and alert. No SI, no HI. No overt psychotic symptoms. He remains impoverished and seemingly confused on exam. No suicidal symptoms. No homicidal symptoms. No overt psychotic symptoms. Insight and judgment seemed more reasonable and certainly with better impulse control. DISCHARGE DIAGNOSES: Likely cognitive impairment; also anxiety, unspecified; mood, unspecified and psychosis, unspecified, rule out pseudobulbar affect. Under medical, please see full H and P. PROGNOSIS: The patient follows up with outpatient mental services and remains compliant with treatment. Prognosis will improve, otherwise guarded. I will follow him at [facility] upon discharge. JOB# [id number]
--- NOTE | 2017-10-04 13:54 | Internal Medicine Prog Note ---
Internal Medicine Subjective - Subjective Service Date: 10/04/17 Patient seen and examined:: with staff Patient is:: awake Per staff patient has:: no adverse event Internal Medicine Objective - Results Result Diagrams: 09/29/17 18:56 09/29/17 18:56 Recent Labs: Laboratory Last Values WBC 6.1 Th/cmm (4.8-10.8) 09/29/17 18:56 RBC 4.77 Mil/cmm (4.30-5.70) 09/29/17 18:56 Hgb 14.4 gm/dL (12-16) 09/29/17 18:56 Hct 43.0 % (41.0-60) 09/29/17 18:56 MCV 90.2 fl (80-99) 09/29/17 18:56 MCH 30.1 pg (26.0-30.0) H 09/29/17 18:56 MCHC Differential 33.4 pg (28.0-36.0) 09/29/17 18:56 RDW 12.5 % (11.5-20.0) 09/29/17 18:56 Plt Count 397 Th/cmm (150-400) 09/29/17 18:56 MPV 8.1 fl 09/29/17 18:56 Neutrophils % 63.4 % (40.0-80.0) 09/29/17 18:56 Lymphocytes % 26.2 % (20.0-50.0) 09/29/17 18:56 Monocytes % 5.7 % (2.0-10.0) 09/29/17 18:56 Eosinophils % 4.5 % (0.0-5.0) 09/29/17 18:56 Basophils % 0.2 % (0.0-2.0) 09/29/17 18:56 PT 9.7 SECONDS (9.5-11.5) 09/29/17 18:56 INR 0.93 (0.5-1.4) 09/29/17 18:56 Sodium 141 mEq/L (136-145) 09/29/17 18:56 Potassium 4.1 mEq/L (3.5-5.1) 09/29/17 18:56 Chloride 104 mEq/L (98-107) 09/29/17 18:56 Carbon Dioxide 28.0 mEq/L (21.0-31.0) 09/29/17 18:56 Anion Gap 13.1 (7.0-16.0) 09/29/17 18:56 BUN 28 mg/dL (7-25) H 09/29/17 18:56 Creatinine 1.1 mg/dL (0.7-1.3) 09/29/17 18:56 Est GFR ( Amer) > 60.0 ml/min (>90) 09/29/17 18:56 Est GFR (Non-Af Amer) > 60.0 ml/min 09/29/17 18:56 BUN/Creatinine Ratio 25.5 09/29/17 18:56 Glucose 462 mg/dL (70-105) H* 09/29/17 18:56 POC Glucose 222 MG/DL (70 - 105) H 10/02/17 16:29 Hemoglobin A1c % 9.6 % (4.0-6.0) H 09/29/17 18:56 Calcium 9.3 mg/dL (8.6-10.3) 09/29/17 18:56 Total Bilirubin 0.6 mg/dL (0.3-1.0) 09/29/17 18:56 AST 47 U/L (13-39) H 09/29/17 18:56 ALT 80 U/L (7-52) H 09/29/17 18:56 Alkaline Phosphatase 88 U/L (34-104) 09/29/17 18:56 Troponin I < 0.01 ng/mL (0.01-0.05) L 09/29/17 18:56 Total Protein 6.9 gm/dL (6.0-8.3) 09/29/17 18:56 Albumin 3.9 gm/dL (4.2-5.5) L 09/29/17 18:56 Globulin 3.0 gm/dL 09/29/17 18:56 Albumin/Globulin Ratio 1.3 (1.0-1.8) 09/29/17 18:56 TSH 2.39 uIU/ml (0.34-5.60) 09/29/17 18:56 RPR NONREACTIVE (NONREACTIVE) 09/29/17 18:56 - Physical Exam Vitals and I&O: Vital Signs Temp 97.5 F 10/04/17 05:28 Pulse 71 10/04/17 05:28 Resp 19 10/04/17 05:28 BP 148/90 10/04/17 05:28 Pulse Ox 99 10/04/17 05:28 Intake & Output 10/03/17 10/04/17 10/04/17 18:59 06:59 18:59 Intake Total 960 180 Balance 960 180 Intake: Oral 960 180 Other: # Voids 3 2 # Bowel Movements 1 0 Active Medications: Current Medications Acetaminophen (Tylenol) 650 mg PO Q4HR PRN PRN Reason: Mild Pain / Temp above 100 Stop: 11/28/17 21:15 Amlodipine Besylate (Norvasc) 10 mg PO DAILY [facility] Stop: 11/29/17 08:59 Last Admin: 10/03/17 10:59 Dose: Not Given Dextromethorphan/Quinidine (Nuedexta 20mg-10mg) 1 cap PO DAILY [facility] Stop: 11/29/17 08:59 Last Admin: 10/03/17 11:02 Dose: Not Given Insulin Aspart (Novolog Insulin Sliding Scale) 0 units SUBQ ACHS MARINE PRN Reason: Protocol Stop: 11/29/17 07:29 Last Admin: 10/04/17 07:02 Dose: Not Given Insulin Detemir (Levemir Insulin) 10 units SUBQ Q12HR [facility]INE PRN Reason: Protocol Stop: 11/29/17 08:59 Last Admin: 10/03/17 21:29 Dose: 10 units Levetiracetam (Keppra) 500 mg PO BID [facility] Stop: 11/29/17 08:59 Last Admin: 10/03/17 18:19 Dose: Not Given Lorazepam (Ativan) 0.5 mg PO Q4HR PRN; Protocol PRN Reason: Anxiety/agitation Stop: 10/29/17 21:15 Last Admin: 09/30/17 21:18 Dose: 0.5 mg Magnesium Hydroxide (Milk Of Magnesia) 30 ml PO HS PRN PRN Reason: Constipation Metoprolol Tartrate (Lopressor) 100 mg PO DAILY [facility] Stop: 11/29/17 08:59 Last Admin: 10/03/17 11:03 Dose: Not Given Mirtazapine (Remeron) 7.5 mg PO DAILY [facility] Stop: 12/01/17 08:59 Last Admin: 10/03/17 11:11 Dose: Not Given Quetiapine Fumarate (Seroquel) 12.5 mg PO BID [facility] PRN Reason: Protocol Stop: 11/29/17 08:59 Last Admin: 10/03/17 18:19 Dose: Not Given Quetiapine Fumarate (Seroquel) 50 mg PO HS [facility] PRN Reason: Protocol Stop: 11/29/17 20:59 Last Admin: 10/03/17 21:23 Dose: Not Given Zolpidem Tartrate (Ambien) 5 mg PO HS PRN PRN Reason: Insomnia Stop: 11/28/17 21:15 Last Admin: 09/30/17 21:19 Dose: 5 mg General: alert HEENT: NC/AT, PERRLA Neck: Supple Cardiovascular: RRR Abdomen: soft, non-tender, non-distended, positive bowel sound Neurological: no change - Procedures Procedures: Procedures Procedure Code Date FIX G/COLON TUBE W/DEVICE 84842 03/12/09 INSERTION OF INFUSION DEVICE INTO UPPER VEIN, PERC APPROACH [id number] 05/11/16 REMOV GASTROSTOMY TUBE 97.51 03/12/09 Internal Medicine Assmt/Plan - Assessment Assessment: psychosis - Plan Plan: cpm Nutritional Asmnt/Malnutr-PDOC - Dietary Evaluation Malnutrition Findings (Please click <Entered> for more info): Nutritional Asmnt/Malnutrition Start: 09/30/17 10: 18 Text: Status: Complete Freq: Document 09/30/17 10:18 ERIC (Rec: 09/30/17 10:24 ERIC WORKMAN- [email or web address]) Nutritional Asmnt/Malnutrition Patient General Information Diagnosis Psychosis NOS Pertinent Medical Hx/Surgical Hx HTN, DM, Brain Aneursym, depression Subjective Information Pt reported good appetite and no nutrition concerns at this time. Pt stated that he would like to leave and that he would like to speak with his family. Pertinent Medications s/s insulin, levemir, MOM Pertinent Labs Na 141, K 4.1, Cl 104, CO2 28, BUN 28, Cr 1.1, Ca 9.3, glucose 462 Nutritional Hx/Data Height 5 ft 6 in Height (Calculated Centimeters) 167.6 Current Weight (lbs) 150 lb Weight (Calculated Kilograms) 68.0 Weight (Calculated Grams) 79430.9 Body Mass Index (BMI) 24.2 Weight Status Approriate GI Symptoms GI Symptoms None Last BM none noted Cultural/Ethnic/Gnosticist Belief None reported Usual diet at home Pt unable to report Skin Integrity/Comment: Hosea score 18 Current %PO Good (75-100%) Estimated Nutritional Goals BEE in Kcals: Using Current wt Calories/Kcals/Kg 25-30kcals/kg Kcals Calculated 1700-2040kcals/day Protein: Using Current wt Protein g/kg/kg Protein Calculated 68g/day Fluid: ml 1700-2040ml/day (1ml/kcal) Nutritional Problem 1. Problem Problem No nutrition diagnosis at this time Intervention/Recommendation Comments Recommend continuing current diet Expected Outcomes/Goals Expected Outcomes/Goals PO intake >75% of meals
[2017-10-04] MEDS: Dextromethorphan/Quinidine 20mg/10mg Cap PO SCH (15:00)
[2017-10-04] MEDS: Insulin Detemir 100 units/mL 10mL Vial SUBQ SCH (15:00)
== END 2017-10-04 15:15 | DRG 885 ==
LOC: ER 17:49 → GERO2 20:10
PROVIDERS: ADMIT Psychiatry & Neurology Psychiatry; ATTEND Psychiatry & Neurology Psychiatry
DX: F29 Unspecified psychosis not due to a substance or known physiological condition (principal); E11.65 Type 2 diabetes mellitus with hyperglycemia; F32.3 Major depressive disorder, single episode, severe with psychotic features; I69.851 Hemiplegia and hemiparesis following other cerebrovascular disease affecting right dominant side; F39 Unspecified mood [affective] disorder; F41.9 Anxiety disorder, unspecified; R45.87 Impulsiveness; G31.84 Mild cognitive impairment of uncertain or unknown etiology; F48.2 Pseudobulbar affect; G40.909 Epilepsy, unspecified, not intractable, without status epilepticus; R26.81 Unsteadiness on feet; I10 Essential (primary) hypertension; Z86.79 Personal history of other diseases of the circulatory system; Z98.2 Presence of cerebrospinal fluid drainage device
CPT/HCPCS: 36415-UA; 71045-TC; 80053-TC; 82948-90; 83036-90; 84443-TC; 84484-TC; 85025-TC; 85610-TC; 86592-TC; 93005; J1815; Z7610

== ENCOUNTER 2018-07-25 22:23 | Emergency (ER) | payer MEDICARE, MEDICAID ==
[2018-07-25] MEDS ORDERED: Sodium Chloride 0.9% 1,000 ML IV ONE (22:51)
--- NOTE | 2018-07-25 22:56 | ED Physician Chart ---
ED Chief Complaint/HPI - Patient Information Date Seen:: 07/25/18 Time Seen:: 22:30 Chief Complaint:: Elevated Blood Sugar History of Present Illness:: onset x one day of elevated blood glucose; Hx of DM; no report of trauma, LOC, ALOC, AMS, H/As, neck pain, C/P, SOB, Abd. Pain, A/N/V/D/C, fever, chills, or urinary s/s Allergies:: Allergies Allergy/AdvReac Type Severity Reaction Status Date / Time No Known Allergies Allergy Verified 04/16/18 23:06 Vitals:: Vital Signs - 8 hr 07/25/18 07/25/18 22:33 22:51 Temp 97.8 F 98 F HR 81 78 RR 11 16 BP 190/97 O2 Sat % 97 95 Historian:: Patient, EMS Review:: Nurse's Note Reviewed, Old Chart Reviewed, EMS run form Reviewed ED Review of Systems - Review of Systems General/Constitutional: No fever, No chills, No weight loss, No weakness, No diaphoresis, No edema, No loss of appetite Skin: No skin lesions, No rash, No bruising Head: No headache, No light-headedness Eyes: No loss of vision, No pain, No diplopia ENT: No earache, No nasal drainage, No sore throat, No tinnitus Neck: No neck pain, No swelling, No thyromegaly, No stiffness, No mass noted Cardio Vascular: No chest pain, No palpitations, No PND, No orthopnea, No edema Pulmonary: No SOB, No cough, No sputum, No wheezing GI: No nausea, No vomiting, No diarrhea, No pain, No melena, No hematochezia, No constipation, No hematemesis G/U: No dysuria, No frequency, No hematuria, No nacturia Musculoskeletal: No bone or joint pain, No back pain, No muscle pain Endocrine: Polyuria, Polydipsia Psychiatric: Prior psych history, Depression, Anxiety, No suicidal ideation, No homicidal ideation, No auditory hallucination, No visual hallucination Hematopoietic: No bruising, No lymphadenopathy Allergic/Immuno: No urticaria, No angioedema Neurological: No syncope, No focal symptoms, No weakness, No paresthesia, No headache, Seizure, No dizziness, No confusion, No vertigo ED Past Medical History - Past Medical History Obtainable: Yes Past Medical History: HTN, DM, CVA/TIA, Seizures Family History: Diabetes Melitus, HTN Social History: Non Smoker, No Alcohol, No Drug Use, Single, Care Facility Surgical History: None Psychiatricy History: Depression, Bipolar Medication: Reviewed Family Medical History - Family Member Mother History Unknown: Yes Ethnicity: Unknown Living Status: Unknown Hx Family Cancer: (unknown) Hx Family Coronary Artery Disease: (unknown) Hx Family Congestive Heart Failure: (unknown) Hx Family Hypertension: (unknown) Hx Family Stroke: (unknown) Hx Family Diabetes: (unknown) Hx Family Seizures: (unknown) Hx Family Dementia: (unknown) Hx Family AIDS: (unknown) Hx Family HIV: No Hx Family COPD: (unknown) Hx Family Hepatitis: (unknown) Hx Family Psychiatric Problems: (unknown) Hx Family Tuberculosis: (unknown) ED Physical Exam - Physical Examination General/Constitutional: Awake, Well-developed, well-nourished, Alert, No distress, GCS 15, Non-toxic appearing, Ambulatory Head: Atraumatic Eyes: Lids, conjuctiva normal, PERRL, EOMI Skin: Nl inspection, No rash, No skin lesions, No ecchymosis, Well hydrated, No lymphadenopathy ENMT: External ears, nose nl, TM canals nl, Nasal exam nl, Lips, teeth, gums nl , Oropharynx nl, Tonsils nl Neck: Nontender, Full ROM w/o pain, No JVD, No nuchal rigidity, No bruit, No mass, No stridor Other Neck comments:: supple; no meningeal signs; no cervical tenderness; no bruits Respiratory: Nl effort/Exclusion, Clear to Auscultation, No Wheeze/Rhonchi/Rales Cardio Vascular: RRR, No murmur, gallop, rubs, NL S1 S2, Carotid/Femoral/Distal pulses equal bilaterally GI: No tenderness/rebounding/guarding, No organomegaly, No hernia, Normal BS's, Nondistended, No mass/bruits, No McBurney tenderness, Rectum exam nl Other GI comments:: no pulsatile masses; good BS : No CVA tenderness Extremities: No tenderness or effusion, Full ROM, normal strength in all extremities, No edema, Normal digits & nails Neuro/Psych: Alert/oriented, DTR's symmetric, Normal sensory exam, Normal motor strength, Judgement/insight normal, Mood normal, Normal gait, No focal deficits Other Neuro/Psych comments:: no focal signs Misc: Normal back, No paraspinal tenderness ED Labs/Radiology/EKG Results - Lab Results Results: Laboratory Tests 07/25/18 22:37 POC Glucose 453 H* Comments:: Reviewed - Radiology Results Comments:: CXR: CM; + Patchy Infiltrate - EKG Interpretations EKG Time:: 22:56 Rate & Rhythm: 82; NSR Comments:: LAE; non-specific st-t changes ED Septic Shock - . Is Septic Shock (SBP<90, OR Lactate>4 mmol\L) present?: No - <6hrs of presentation: Vital Signs: Vital Signs - 8 hr 07/25/18 07/25/18 22:33 22:51 Temp 97.8 F 98 F HR 81 78 RR 11 16 BP 190/97 O2 Sat % 97 95 ED Reassessment (Disposition) - Reassessment Reassessment:: pt is asymptomatic upon discharge/transfer back to SNF Unit; Dr. Lewis notified ; pt to be D/C to SNF Unit Reassessment Condition:: Improved - Diagnosis Diagnosis:: Uncontrolled DM; Hyperglycemia; Uncontrolled HTN; PNA; Hypertension; Diabetes Mellitus - Aftercare/Follow up Instructions Aftercare/Follow-Up Instructions:: Counseled pt regarding lab results/diagnosis & need follow up, Refer to Discharge Instructions, Counseled pt & family regarding lab results/diagnosis & need follow up Medication Prescribed:: Rx: Levaquin 500mg po qd x 10 days; continue all medications per Dr. Lewis - Patient Disposition Discharge/Transfer:: [facility] Care - SNF Accepting Physician:: Dr. Lewis Time Called:: 19 Time Responded:: 00:20 Spoke to:: Dr. Lewis Condition at Disposition:: Stable, Improved (X-Rays Instructions; RTER prn if existing s/s reoccur and/or get worse and/or any other new s/s occur; ACIs given for all above Dx; Refer to Angiography Nurse/Advertising Writer JOSHUA; Have Blood Pressure re-checked in one day; F/U with PMD Today or prn; RTER prn if concerned )
[2018-07-25] MEDS ORDERED: NITROGLYCERIN OINT 2% 1 INCH PACKET TP STA (22:58)
[2018-07-25] MEDS ORDERED: NITROGLYCERIN OINT 2% 1 INCH PACKET TP ONE (23:02)
[2018-07-25 23:15] LABS: ALLEN TEST Positive; PaCO2 42.6 mmHg (35.0-45.0); PaO2 74.2 mmHg (80.0-100.0); pH 7.41 (7.35-7.45)
[2018-07-25 23:23] LABS: % BASOPHILS 1.3 % (0.0-2.0); % LYMPHOCYTES 25.7 % (20.0-50.0); % MONOCYTES 7.5 % (2.0-10.0); % NEUTROPHILS 61.5 % (40.0-80.0); BASOPHILE ABSOLUTE 0.1 Th/cumm (0-0.2); EOSINOPHILE ABSOLUTE 0.3 Th/cmm (0.1-0.4); HEMOGLOBIN 15.6 gm/dL (12-16); MEAN CELL VOLUME 89.7 fl (80-99); MEAN CORPUSCULAR HEMOGLOBIN 29.8 pg (26.0-30.0); MEAN CORPUSCULAR HGB CONC 33.2 pg (28.0-36.0); MEAN PLATELET VOLUME 7.6 fl; MONOCYTE ABSOLUTE 0.6 Th/cmm (0.3-1.0); NEUTROPHILE ABSOLUTE 4.6 Th/cmm (1.8-8.0); PLATELET COUNT 447 Th/cmm (150-400); RED BLOOD COUNT 5.24 Mil/cmm (4.30-5.70); RED CELL DISTRIBUTION WIDTH 12.9 % (11.5-20.0); WHITE BLOOD COUNT 7.6 Th/cmm (4.8-10.8)
[2018-07-25 23:33] LABS: INR 0.92 (0.5-1.4); PROTHROMBIN TIME (TEST) 9.6 SECONDS (9.5-11.5)
[2018-07-25 23:40] LABS: ALB/GLOB RATIO 1.2 (1.0-1.8); ALBUMIN 4.1 gm/dL (4.2-5.5); ALKALINE PHOSPHATASE 81 U/L (34-104); AMYLASE SERUM 31 U/L (29-103); ANION GAP 11.7 (7.0-16.0); BILIRUBIN,TOTAL 0.6 mg/dL (0.3-1.0); BUN - UREA NITROGEN 25 mg/dL (7-25); CALCIUM SERUM 9.6 mg/dL (8.6-10.3); CARBON DIOXIDE 31.2 mEq/L (21.0-31.0); CHLORIDE 102 mEq/L (98-107); CHOLESTEROL 174 mg/dL (<200); CREATININE - SERUM 1.1 mg/dL (0.7-1.3); CREATININE KINASE 41 U/L (30-223); GFR AFRICAN-AMERICAN > 60.0 ml/min (>90); GFR NON AFRICAN-AMERICAN > 60.0 ml/min; HDL -HIGH DENSITY LIPOPROTEIN 39 mg/dL (23-92); LIPASE 8 U/L (11-82); POTASSIUM SERUM 3.9 mEq/L (3.5-5.1); SGOT 19 U/L (13-39); SGPT/ALT 41 U/L (7-52); SODIUM SERUM 141 mEq/L (136-145); TOTAL PROTEIN,SERUM 7.4 gm/dL (6.0-8.3); TRIGLYCERIDES 162 mg/dL (<150)
[2018-07-25 23:48] LABS: GLUCOSE 460 mg/dL (70-105)
[2018-07-25 23:59] LABS: URINE SOURCE MIDSTREAM
[2018-07-26] MEDS ORDERED: INSULIN HUMAN REGULAR 100 UNITS/ML UNIT IV ONE (00:40)
[2018-07-26 00:43] LABS: URINE BILIRUBIN NEGATIVE (NEGATIVE); URINE BLOOD NEGATIVE (NEGATIVE); URINE GLUCOSE (UA) >=1000 mg/dL (NEGATIVE); URINE KETONE NEGATIVE (NEGATIVE); URINE LEUKOCYTE ESTERASE NEGATIVE (NEGATIVE); URINE MICROSCOPIC INDICATED? YES; URINE NITRATE NEGATIVE (NEGATIVE); URINE PROTEIN NEGATIVE (NEGATIVE); URINE UROBILINOGEN 0.2 E.U./dL (0.2 - 1.0)
[2018-07-26] MEDS ORDERED: INSULIN HUMAN REGULAR 100 UNITS/ML UNIT ONE (00:47)
[2018-07-26 00:48] LABS: URINE CLARITY CLEAR (CLEAR); URINE COLOR STRAW
[2018-07-26] MEDS ORDERED: Levofloxacin 500mg/100mL 500 MG/100 ML BAG IV ONE ×2 (00:54→01:15)
[2018-07-26 00:55] LABS: URINE BACTERIA NONE SEEN /hpf (NONE SEEN); URINE EPITHELIAL CELLS RARE /lpf (FEW); URINE RBC NONE SEEN /hpf (0-5); URINE WBC NONE SEEN /hpf (0-5)
--- NOTE | 2018-07-26 10:34 | Diagnostic Imaging Report ---
Portable chest x-ray History: Pain Allowing for portable technique the heart size is normal. No focal pulmonary parenchymal processes. No hilar or mediastinal abnormalities. Catheter tubing noted over the left neck, chest, and abdominal region. Impression: No acute abnormalities.
== END 2018-07-26 04:15 | disposition home or self-care (01) ==
LOC: ER 22:23
DX: E11.65 Type 2 diabetes mellitus with hyperglycemia (principal); I10 Essential (primary) hypertension; J18.9 Pneumonia, unspecified organism; Z86.73 Personal history of transient ischemic attack (TIA), and cerebral infarction without residual deficits
CPT/HCPCS: 99284; 96365; 96375; 82803; 36600; 94760; 93005; 71045; 84484; 83880; 36415; 36416 ×4; 80299; 82948 ×4; 83605; 84443; 85025; 85610; 85730; 81001; 82150; 82550; 83036; 82010; 83690; 80053; 80061; 80164; 87081; 87040 ×2; Z7610; J1815; J1956; 81003-TC; J7030; Z7502